=== PATIENT | male | born 1955 | race African-American/Black ===

== ENCOUNTER 2020-03-24 10:00 | Outpatient (RCR) | payer MEDICARE, MEDICAID, SELFPAY | END 2020-04-14 10:36 | disposition other institution (70) | LOC: HO.PT 10:00 | PROVIDERS: PCP Internal Medicine; Visit Provider Internal Medicine | DX: M51.36 Other intervertebral disc degeneration, lumbar region (principal) | CPT/HCPCS: 97110; 97112; 97150 ==

== ENCOUNTER 2021-02-07 10:36 | Outpatient (REF) | payer MEDICARE, MEDICAID, SELFPAY ==
--- NOTE | ~2021-02-07 | XR_ITS ---
EXAMINATION: XR CHEST CLINICAL INFORMATION: COPD. COMPARISON: 02/09/2016 chest radiograph. TECHNIQUE: 2 views of the chest were obtained. FINDINGS: The lungs show generalized hyperinflation, but otherwise are clear. The heart and mediastinal structures are unremarkable. XR/XR chest 2V IMPRESSION: Generalized pulmonary hyperinflation is nonspecific, but can be seen with COPD as per the patient's history. No acute cardiopulmonary process.
== END 2021-02-07 10:37 | disposition home or self-care (01) ==
LOC: HO.XRAY 10:36
PROVIDERS: PCP Internal Medicine; Visit Provider Internal Medicine
DX: J44.9 Chronic obstructive pulmonary disease, unspecified (principal); F17.210 Nicotine dependence, cigarettes, uncomplicated; Z79.899 Other long term (current) drug therapy
CPT/HCPCS: 71046; 99202

== ENCOUNTER 2021-03-02 10:24 | Outpatient (REF) | payer MEDICARE, MEDICAID, SELFPAY ==
--- NOTE | 2021-03-02 12:18 | PFT_ITS ---
FLOWS: FEV1 39% of predicted at 1.06 L. FVC 88% of predicted at 3.15 L. FEV1 to FVC ratio of 0.34. Positive bronchodilator response. LUNG VOLUMES: Total lung capacity 125% of predicted at 7.90 L. Residual volume 230% of predicted at 4.90 L. Slow vital capacity 60% of predicted at 3 L. Expiratory reserve volume 58% of predicted at 0.85 L. Diffusion capacity is moderately decreased. IMPRESSION: Severe obstructive ventilatory defect with positive bronchodilator response. Increased total lung capacity suggests hyperinflation. Increased residual volume suggests air trapping. Decreased diffusion capacity suggests emphysema. MD STARLA Bowers/MODL / [id number]
== END 2021-03-02 10:25 | disposition home or self-care (01) ==
LOC: HO.RESP 10:24
PROVIDERS: PCP Internal Medicine; Visit Provider Internal Medicine
DX: R06.00 Dyspnea, unspecified (principal); J44.9 Chronic obstructive pulmonary disease, unspecified; F17.210 Nicotine dependence, cigarettes, uncomplicated
CPT/HCPCS: 94060; 94727; 94729

== ENCOUNTER 2021-03-04 15:16 | Outpatient (REF) | payer MEDICARE, MEDICAID, SELFPAY ==
--- NOTE | ~2021-03-04 | CT_ITS ---
EXAMINATION: CT CHEST SCREENING CLINICAL INFORMATION: Smoker. One pack per day 51 years. COMPARISON: None. TECHNIQUE: Multidetector volumetric CT imaging of the chest is performed without contrast using low dose technique. Additional 2D coronal and sagittal reformatted images and axial 3D maximum intensity projection (MIP) images are generated on the CT workstation. This CT examination was performed using dose optimization techniques as appropriate, variously including the following: *Automated exposure control *Adjustment of mA and/or kV according to patient size (this includes techniques or standardized protocols for targeted exams where dose is matched to indication/reason for exam; i.e. extremities or head) *Use of iterative reconstruction technique DLP: 64 mGy-cm. FINDINGS: LUNGS: Lungs are hyperinflated with centrilobular emphysema but without acute pneumonic process. There are no pulmonary nodules, mass or consolidation. MEDIASTINUM: The thyroid lobes are symmetrical and normal. The central trachea and the bronchi widely patent. The heart size and the great vessels are normal caliber. No pericardial effusion seen. PLEURA: There is no pleural effusion. No pleural mass or thickening. AXILLA: No abnormal axillary lymph nodes seen. The chest wall is unremarkable. UPPER ABDOMEN: Unremarkable. OSSEOUS STRUCTURES: No lytic or sclerotic process seen. There is mild ventral spondylosis dorsal spine. CT/CT lung screening IMPRESSION: Unremarkable CT chest exam. No lung nodules, mass or abnormal mediastinal lymphadenopathy seen. ASSESSMENT: Lung-RADS category 1: Negative RECOMMENDATION: Low-dose annual CT chest exam.
== END 2021-03-04 15:17 | disposition home or self-care (01) ==
LOC: HO.CT 15:16
PROVIDERS: PCP Internal Medicine; Visit Provider Physician Assistant Medical
DX: Z12.2 Encounter for screening for malignant neoplasm of respiratory organs (principal); F17.210 Nicotine dependence, cigarettes, uncomplicated
CPT/HCPCS: 71271; G0296

== ENCOUNTER → 2021-03-15 11:09 | Outpatient (BNVA) | payer MEDICARE, MEDICAID, SELFPAY | PROVIDERS: PCP Internal Medicine; Visit Provider Internal Medicine | DX: J44.9 Chronic obstructive pulmonary disease, unspecified (principal); F17.210 Nicotine dependence, cigarettes, uncomplicated | CPT/HCPCS: Q3014 ==

== ENCOUNTER → 2021-05-18 11:02 | Outpatient (BNVA) | payer MEDICARE, MEDICAID, SELFPAY | PROVIDERS: PCP Internal Medicine; Visit Provider Internal Medicine | DX: J44.9 Chronic obstructive pulmonary disease, unspecified (principal); R06.00 Dyspnea, unspecified; F17.210 Nicotine dependence, cigarettes, uncomplicated; F51.02 Adjustment insomnia | CPT/HCPCS: 99212 ==

== ENCOUNTER → 2021-07-21 10:48 | Outpatient (BNVA) | payer MEDICARE, MEDICAID, SELFPAY | PROVIDERS: PCP Internal Medicine; Visit Provider Internal Medicine | DX: J44.9 Chronic obstructive pulmonary disease, unspecified (principal); F17.210 Nicotine dependence, cigarettes, uncomplicated; R06.00 Dyspnea, unspecified ==

== ENCOUNTER 2022-05-06 12:27 | Inpatient (IN) | payer MEDICARE, MEDICAID, SELFPAY ==
[2022-05-06] VITALS (10 sets, daily range): BP systolic 106–162; BP diastolic 69–95; PULSE 84–102; RESP 16–18; TEMP 36.7–37.2; O2SAT 91–99; BMI 26.4
--- NOTE | ~2022-05-06 | CT_ITS ---
EXAMINATION: CT HEAD WITHOUT CONTRAST CT CERVICAL SPINE WITHOUT CONTRAST CLINICAL INFORMATION: Head and neck pain, post syncopal episode. COMPARISON: None TECHNIQUE: Multiple axial images are obtained from the skull base to the vertex and multidetector volumetric CT imaging of the cervical spine are obtained, without intravenous contrast administration. Postprocessing is performed at a dedicated workstation. Multiplanar reformatted images are submitted. This CT scan was performed using dose optimization techniques as appropriate to a performed exam including the following: *Automated exposure control *Adjustment of mA and/or kV according to patient size (this includes techniques or standardized protocols for targeted exams were dose is matched to indication/reason for exam; i.e. extremities or head) *Use of iterative reconstruction technique DLP: 1346 mGy-cm FINDINGS: CT Head: There is no evidence of acute intracranial hemorrhage, midline shift, mass effect, acute territorial infarction or abnormal extra-axial fluid collection. [id number] matter differentiation is well preserved. No significant abnormal parenchymal attenuation is noted. Osseous calvarium is intact. Small subgaleal hematoma is noted over the right posterior parietal region. There is mild deformity of the medial wall of the right orbit, likely chronic. Opacification of a few of the right anterior ethmoid air cells and minimal mucosal thickening in the right frontal sinus. The remainder of the paranasal sinuses are well aerated. Mastoid air cells and middle ear cavities are well aerated. Incidental note is made of a partially visualized cavity in the left maxillary region in the region of a molar tooth, probably represents a dentigerous cyst (series 14 image 33, series 3 image 13). CT Cervical Spine: Fusion of the C5, C6 and C7 vertebral bodies is noted. Alignment is maintained. Atlantoaxial and atlantooccipital alignments are maintained. The posterior elements are intact and in normal alignment. There is no evidence of prevertebral soft tissue swelling. Changes of emphysema are noted in the lung apices. No focal thyroid nodule. There is no evidence of tight central canal stenosis. Varying degree of bilateral facet arthropathy is noted. [id number] bilateral neural foraminal stenosis is noted at C3-C4 and C5-C6. [id number] bilateral neural foraminal stenosis at C5-C6 with mild central canal stenosis. Airway is patent. CT/CT cervical spine wo IV con IMPRESSION: 1. No acute intracranial abnormality. 2. No evidence of acute fracture or subluxation in the cervical spine. Cervical spondylosis.
--- NOTE | ~2022-05-06 | XR_ITS ---
EXAMINATION: XR CHEST CLINICAL INFORMATION: Wheezing. Syncope. COMPARISON: 02/07/2021 TECHNIQUE: Frontal view of the chest was obtained. FINDINGS: New patchy right lower lobe lung markings. This may represent a focal pneumonia. Given the history of syncope, aspiration is a consideration. Stable heart and mediastinum. Nonobstructive gas pattern. Stable idiopathic scoliosis. XR/XR chest 1V IMPRESSION: Patchy opacity at the right base suspicious for aspiration or pneumonia.
--- NOTE | 2022-05-06 13:22 | ECG_ITS ---
Test Reason : syncope Blood Pressure : / mmHG Vent. Rate : 098 BPM Atrial Rate : 098 BPM P-R Int : 150 ms QRS Dur : 104 ms QT Int : 332 ms P-R-T Axes : 079 -37 094 degrees QTc Int : 423 ms Normal sinus rhythm Left anterior fascicular block Incomplete right bundle branch block Nonspecific T wave abnormality Abnormal ECG When compared with ECG of 09-FEB-2016 11:59, T wave amplitude has decreased in Lateral leads Heart rate has increased Referred By: Shania Ni Electronically Signed By:MARIAELENA CANALES MD
--- NOTE | 2022-05-06 13:24 | ED_ITS ---
HPI - Syncope General Chief Complaint: Syncope Stated Complaint: DIZZY W/FALL,+LOC,HIT HEAD,+COVID,+CCOLLAR PER EMS Time Seen by Provider: 05/06/22 13:12 Source: patient and EMS Mode of arrival: EMS History of Present Illness HPI narrative: 66-year-old male with past medical history of COPD, HTN, anxiety, depression, HLD, cigarette smoker, COVID-19 positive on home test yesterday presenting to the ED complaining of lightheadedness followed by syncope [employer] with + head injury. States was sitting in chair in front of fan, got up to start walking and syncopized. Reports associated upper abdominal pain, diaphoresis, and decreased p.o. intake times days. Reports chronic back pain and SOB unchanged. Denies headache, neck pain, CP/SOB, nausea, vomiting, diarrhea, pedal edema, room spinning dizziness. Denies using inhaler or recent steroids MD complaint: loss of consciousness and felt faint Onset (ago): hour(s) Related Data Previous Rx's Medication Instructions Recorded escitalopram oxalate 10 mg tablet 10 mg PO DAILY 90 days #90 tabs 07/28/21 trazodone 50 mg tablet 100 mg PO DAILY insomnia 90 days 07/28/21 #180 tabs ibuprofen 800 mg tablet 800 mg PO TID PRN for pain #90 tabs 11/21/21 lisinopril 40 mg tablet 40 mg PO DAILY 90 days #90 tabs 11/21/21 simvastatin 20 mg tablet 20 mg PO BEDTIME 90 days #90 tabs 11/21/21 amlodipine 5 mg tablet 5 mg PO DAILY 90 days #90 tabs 12/08/21 blood pressure test kit-large #1 ea 12/22/21 albuterol sulfate 90 mcg/actuation 2 puff inhalation Q6H PRN 03/30/22 aerosol inhaler (Ventolin HFA) shortness of breath or wheezing 30 days #6.7 grams fluticasone furoate 200 1 inh inhalation DAILY 30 days #60 03/30/22 mcg-vilanterol 25 mcg/dose ea inhalation powder (Breo Ellipta) umeclidinium 62.5 mcg/actuation 1 inh inhalation Q24H 30 days #30 03/30/22 blister powder for inhalation ea (Incruse Ellipta) Allergies Allergy/AdvReac Type Severity Reaction Status Date / Time No Known Allergies Allergy Verified 03/30/22 09:53 [No Known Allergies*] Review of Systems Review of Systems: Constitutional: No Fever, No Chills, No Fatigue, No Malaise ENT/Mouth: No Ear Pain, No Nasal Congestion, No sore throat, No Rhinorrhea, No Swallowing Difficulty Eyes: No Eye Pain, No Swelling, No Redness, No Vision Changes Cardiovascular: No Chest Pain, +chronic SOB, No Dyspnea on Exertion, No Orthopnea, No Edema, No Palpitations Respiratory: No Cough, No Sputum, No Wheezing, No Dyspnea Gastrointestinal: No Nausea, No Vomiting, No Diarrhea, No Constipation, + Abdominal pain Genitourinary: No Dysuria, No Urinary Frequency, No Hematuria, No Urinary Incontinence/retention, No Flank Pain Musculoskeletal: No joint pain, No Myalgias, No Joint Swelling Skin: No Skin Lesions, No rash Neuro: No Weakness, No Numbness, No Paresthesias, + Loss of Consciousness, + lightheadedness, No Headache Yes all other systems are reviewed and are negative Constitutional: Constitutional: Reports as per HPI Neurologic: Denies Abnormal speech present [facility] Past Medical History Attestation statement: The following information was validated with the patient. Medical History COPD (chronic obstructive pulmonary disease) Dyspnea on exertion Essential hypertension NEENA (generalized anxiety disorder) History of prostate cancer Insomnia due to psychological stress Lumbar spondylosis Mild depression Personal history of nicotine dependence Pure hypercholesterolemia Smoker Tubular adenoma of colon Surgical History History of colonoscopy (~2017) History of prostate biopsy (~2015) History of prostate surgery (~2016) History of removal of cyst (~1990) Family History Family History Father Diabetes Pancreatic cancer Mother CVD (cardiovascular disease) Acute CVA (cerebrovascular accident) Family/Other FH: mental illness Social History Social History Housing: Apartment Alcohol intake: current Alcohol intake frequency: holidays/special occasions only Alcohol type: beer Patient Tobacco Use Status: Current everyday Tobacco user Tobacco use type: Cigarette Cigarettes Per Day: 10 Years Smoked: 51 (onset 15, 1/2-1ppd, 40pyh) Smoked in Last 30 Days: Yes e-Cigarette/Vaping Use: Never Used Second Hand Smoke Exposure: No Use of substances other than those prescribed or required for medical reasons: Yes Substance Use Type: Marijuana Advance Directives: No Advance Directives Information Provided: No Advance Directives Date on File: 03/22/20 service: No Current occupational status: disabled Cognitive needs: Yes Hearing needs: No Vision needs: No Physical Exam Vital Signs: Vital Signs: Last Vital Signs Temp 98.9 F 05/06/22 15:22 Pulse 94 05/06/22 15:22 Resp 16 05/06/22 15:22 BP 126/78 05/06/22 15:22 Pulse Ox 92 05/06/22 15:22 O2 Del Method 05/06/22 15:22 BMI result Body Mass Index 26.4 Const: General: cooperative, healthy appearing, no acute distress, alert and awake Orientation/consciousness: patient oriented x3 Limitations: no limitations HEENT: Head: Yes normal to inspection and Yes atraumatic Ears: hearing grossly normal bilaterally General nose exam: Normal external nose present Face and sinus: Yes normal facial exam Throat: Yes posterior oropharynx normal and Yes tonsils normal Eyes: General: appearance normal, both eyes and all related structures Pupils: Equal, round and reactive pupils present EOM: EOMs intact bilaterally Neck: Other: C-collar in place. No appreciable midline spinous tenderness Neck: Yes normal visual inspection and Yes no meningeal signs Chest: Chest palpation & inspection: normal inspection of the chest and no crepitus Resp: Effort & Inspection: normal respiratory effort and no respiratory distress Auscultation: wheezes expiratory wheezes and throughout Cardio: Rate: regular rate Heart sounds: S1 normal heart sound present and S2 normal heart sound present GI: Inspection: Yes normal to inspection Palpation (GI): Soft to palpation, Tenderness to palpation present (GI) in the epigastrum; with no rebound tenderness, no guarding and not rigid : General: Yes no CVA tenderness Back/Spine/Pelvis: Other: No midline thoracic/lumbar spinous tenderness/step-off or deformity Back: no CVA tenderness Skin: Rashes: no rashes Wounds: no wounds Neuro: General: patient oriented x3, tone normal, moves all extremities, no meningeal signs, no focal motor deficits and CN's II-XI intact bilaterally Cranial nerves: Yes CN's II-XII intact bilaterally, Yes Equal, round and reactive pupils present and Yes Bilaterally intact EOM present Cognition (Neuro): normal cognition Speech: No Abnormal speech present Motor exam (neuro): 5/5 motor strength present throughout, Pronator motor function not present and no tremor noted Coordination: [id number] test normal Romberg Test: Negative Extrem: General: Yes normal to inspection and Yes no pedal edema Course Course Course Narrative: 1428--XR chest 1V IMPRESSION: Patchy opacity at the right base suspicious for aspiration or pneumonia. >> lactic/blood cultures and IV cefepime ordered -1600--no leukocytosis. Lactic acid 2.0. Initial troponin mildly elevated > will obtain 3 hour repeat -CPK 800 > total 2 L IVF ordered -COVID-[address] head/brain wo IV con/CT cervical spine wo IV con IMPRESSION: 1. No acute intracranial abnormality. 2. No evidence of acute fracture or subluxation in the cervical spine. Cervical spondylosis. -orthostatic vital signs negative > on re-evaluation patient is still feeling lightheaded. Plan to admit for observation/further management Medications Administered Generic Name Dose Route Start Last Admin Trade Name Freq PRN Reason Stop Dose Admin Sodium Chloride 1,000 mls @ 999 mls/hr 05/06/22 15:15 05/06/22 15:17 Ns IV 05/06/22 16:15 999 mls/hr .Q1H1M IVAN Administration Discontinued Medications Generic Name Dose Route Start Last Admin Trade Name Freq PRN Reason Stop Dose Admin Albuterol Sulfate 5 mg 05/06/22 13:24 05/06/22 13:47 Albuterol Sulfate 2.5 Mg/0.5 Ml Vial.Neb INHALE 05/06/22 13:25 5 mg ONCE ONE Administration Albuterol/Ipratropium 3 ml 05/06/22 13:24 05/06/22 13:47 Albuterol/Iprat 2.5/0.5mg 3 Ml Ampul.Neb INHALE 05/06/22 13:25 3 ml ONCE ONE Administration Famotidine 20 mg 05/06/22 13:21 05/06/22 14:23 Famotidine/Pf 20 Mg/2 Ml Vial IVPUSH 05/06/22 13:22 20 mg ONCE ONE Administration Sodium Chloride 1,000 mls @ 999 mls/hr 05/06/22 13:30 05/06/22 15:38 Ns IV 05/06/22 14:30 Infused .Q1H1M IVAN Infusion Cefepime HCl 2 gm/ Sodium 50 mls @ 100 mls/hr 05/06/22 14:27 05/06/22 15:47 Chloride IV 05/06/22 14:56 Infused ONCE ONE Infusion Methylprednisolone Sodium Succinate 125 mg 05/06/22 13:21 05/06/22 14:23 Methylprednisolone Sod Succ 125 Mg/2 Ml Vial IVPUSH 05/06/22 13:22 125 mg ONCE ONE Administration MDM - Syncope MDM Narrative Medical decision making narrative: 66-year-old male with past medical history of COPD, HTN, anxiety, depression, HLD, cigarette smoker, COVID-19 positive on home test yesterday presenting to the ED complaining of lightheadedness followed by syncope [employer] with + head injury. States was sitting in chair in front of fan, got up to start walking and syncopized. Reports associated upper abdominal pain, diaphoresis, and decreased p.o. intake x days. On exam vital signs stable, C-collar in place, NAD, no focal neuro deficits, diffuse expiratory wheeze noted, abdomen soft epigastric tenderness. Concern for vasovagal syncope vs dehydration and metabolic abnormalities vs ACS vs COPD exacerbation. Lower suspicion for PE, pancreatitis, DVT. Lower suspicion for SAH. Rule out ICH Plan: EKG, labs, UA, CXR, head/C-spine CT, IVF, orthostatics, re-evaluate Differential Diagnosis Differential diagnosis: Likely syncope due to orthostatic hypotension, vasovagal syncope and dehydration Medical Records Attestation: I reviewed the patient's medical records. Lab Data Attestation: I reviewed the patient's lab results. Result diagrams: 05/06/22 14:20 05/06/22 14:20 Labs: Lab Results 05/06/22 05/06/22 05/06/22 Range/Units 14:20 14:20 14:20 WBC 9.5 (4.8-10.8) X10*3/uL RBC 5.54 (4.60-5.80) X10*6/uL Hgb 14.9 (14.0-18.0) g/dl Hct 46.6 (42.0-52.0) % MCV 84.1 (80.0-98.0) fL MCH 26.9 L (27.0-33.0) pg MCHC 32.0 (31.0-36.0) g/dl RDW 14.6 (11.0-16.0) % Plt Count 105 L (160-400) X10*3/uL MPV 11.4 (9.4-12.4) fL Immature Gran % (Auto) 0.3 (0.0-0.4) % Neut % (Auto) 76.7 H (45-73) % Lymph % (Auto) 15.4 L (20-40) % [place] % (Auto) 7.5 (2-11) % Eos % (Auto) 0.0 (0-4) % Baso % (Auto) 0.1 (0-2) % Lymph # (Auto) 1.5 (1.2-4.9) X10*3/uL [place] # (Auto) 0.7 (0.1-1.2) X10*3/uL Eos # (Auto) 0.0 (0.0-0.4) X10*3/uL Baso # (Auto) 0.0 (0.0-0.2) X10*3/uL Abs Immat Gran (auto) 0.03 (0.00-0.03) X10*3/uL Absolute Neuts (auto) 7.3 (2.0-8.3) x10*3/uL Absolute Nucleated RBC 0.000 (0.0-0.012) X10*3/uL Nucleated RBC % (auto) 0.0 (0.0-0.2) /100WBC Smear Tech's Comments VERIFIED PT 13.4 H (10.0-13.1) SEC INR 1.2 H (0.9-1.1) Sodium 144 (135-145) mmol/L Potassium 3.4 (3.3-5.1) mmol/L Chloride 107 (96-108) mmol/L Carbon Dioxide 23 (22-29) mmol/L Anion Gap 17 (12-20) BUN 18 H (9-16) mg/dL Creatinine 1.03 (0.5-1.4) mg/dL Estim Creat Clear Calc 75.3 Estimated GFR > 60 Random Glucose 131 H (60-115) mg/dL Lactic Acid (0.5-2.0) mmol/L Calcium 8.8 (8.4-10.2) mg/dL Magnesium 2.3 (1.6-2.6) mg/dL Total Bilirubin 0.4 (0.0-1.0) mg/dL Direct Bilirubin 0.2 (0.0-0.5) mg/dL AST 34 (5-37) U/L ALT 27 (0-40) U/L Alkaline Phosphatase 85 (39-117) U/L Total Creatine Kinase 800 H (38-174) U/L Troponin I High Sens (<3.5-35.0) ng/L B-Natriuretic Peptide (<100) pg/mL Total Protein 7.3 (6.5-8.0) g/dL Albumin 4.2 (3.5-5.0) g/dL Lipase 7 L (8-78) U/L Influenza Type A (PCR) (Negative) Influenza Type B (PCR) (Negative) RSV RNA Qual (PCR) (Negative) SARS-CoV-2 RNA (RT-PCR) (Negative) 05/06/22 05/06/22 05/06/22 Range/Units 14:20 14:20 14:20 WBC (4.8-10.8) X10*3/uL RBC (4.60-5.80) X10*6/uL Hgb (14.0-18.0) g/dl Hct (42.0-52.0) % MCV (80.0-98.0) fL MCH (27.0-33.0) pg MCHC (31.0-36.0) g/dl RDW (11.0-16.0) % Plt Count (160-400) X10*3/uL MPV (9.4-12.4) fL Immature Gran % (Auto) (0.0-0.4) % Neut % (Auto) (45-73) % Lymph % (Auto) (20-40) % [place] % (Auto) (2-11) % Eos % (Auto) (0-4) % Baso % (Auto) (0-2) % Lymph # (Auto) (1.2-4.9) X10*3/uL [place] # (Auto) (0.1-1.2) X10*3/uL Eos # (Auto) (0.0-0.4) X10*3/uL Baso # (Auto) (0.0-0.2) X10*3/uL Abs Immat Gran (auto) (0.00-0.03) X10*3/uL Absolute Neuts (auto) (2.0-8.3) x10*3/uL Absolute Nucleated RBC (0.0-0.012) X10*3/uL Nucleated RBC % (auto) (0.0-0.2) /100WBC Smear Tech's Comments PT (10.0-13.1) SEC INR (0.9-1.1) Sodium (135-145) mmol/L Potassium (3.3-5.1) mmol/L Chloride (96-108) mmol/L Carbon Dioxide (22-29) mmol/L Anion Gap (12-20) BUN (9-16) mg/dL Creatinine (0.5-1.4) mg/dL Estim Creat Clear Calc Estimated GFR Random Glucose (60-115) mg/dL Lactic Acid (0.5-2.0) mmol/L Calcium (8.4-10.2) mg/dL Magnesium (1.6-2.6) mg/dL Total Bilirubin (0.0-1.0) mg/dL Direct Bilirubin (0.0-0.5) mg/dL AST (5-37) U/L ALT (0-40) U/L Alkaline Phosphatase (39-117) U/L Total Creatine Kinase (38-174) U/L Troponin I High Sens 15.4 (<3.5-35.0) ng/L B-Natriuretic Peptide 12 (<100) pg/mL Total Protein (6.5-8.0) g/dL Albumin (3.5-5.0) g/dL Lipase (8-78) U/L Influenza Type A (PCR) NEGATIVE (Negative) Influenza Type B (PCR) NEGATIVE (Negative) RSV RNA Qual (PCR) NEGATIVE (Negative) SARS-CoV-2 RNA (RT-PCR) POSITIVE A (Negative) 05/06/22 Range/Units 14:46 WBC (4.8-10.8) X10*3/uL RBC (4.60-5.80) X10*6/uL Hgb (14.0-18.0) g/dl Hct (42.0-52.0) % MCV (80.0-98.0) fL MCH (27.0-33.0) pg MCHC (31.0-36.0) g/dl RDW (11.0-16.0) % Plt Count (160-400) X10*3/uL MPV (9.4-12.4) fL Immature Gran % (Auto) (0.0-0.4) % Neut % (Auto) (45-73) % Lymph % (Auto) (20-40) % [place] % (Auto) (2-11) % Eos % (Auto) (0-4) % Baso % (Auto) (0-2) % Lymph # (Auto) (1.2-4.9) X10*3/uL [place] # (Auto) (0.1-1.2) X10*3/uL Eos # (Auto) (0.0-0.4) X10*3/uL Baso # (Auto) (0.0-0.2) X10*3/uL Abs Immat Gran (auto) (0.00-0.03) X10*3/uL Absolute Neuts (auto) (2.0-8.3) x10*3/uL Absolute Nucleated RBC (0.0-0.012) X10*3/uL Nucleated RBC % (auto) (0.0-0.2) /100WBC Smear Tech's Comments PT (10.0-13.1) SEC INR (0.9-1.1) Sodium (135-145) mmol/L Potassium (3.3-5.1) mmol/L Chloride (96-108) mmol/L Carbon Dioxide (22-29) mmol/L Anion Gap (12-20) BUN (9-16) mg/dL Creatinine (0.5-1.4) mg/dL Estim Creat Clear Calc Estimated GFR Random Glucose (60-115) mg/dL Lactic Acid 2.0 (0.5-2.0) mmol/L Calcium (8.4-10.2) mg/dL Magnesium (1.6-2.6) mg/dL Total Bilirubin (0.0-1.0) mg/dL Direct Bilirubin (0.0-0.5) mg/dL AST (5-37) U/L ALT (0-40) U/L Alkaline Phosphatase (39-117) U/L Total Creatine Kinase (38-174) U/L Troponin I High Sens (<3.5-35.0) ng/L B-Natriuretic Peptide (<100) pg/mL Total Protein (6.5-8.0) g/dL Albumin (3.5-5.0) g/dL Lipase (8-78) U/L Influenza Type A (PCR) (Negative) Influenza Type B (PCR) (Negative) RSV RNA Qual (PCR) (Negative) SARS-CoV-2 RNA (RT-PCR) (Negative) Critical Care Time Critical Care Time Critical Care Time: Yes Total Critical Care Time: 35 Attestation: I have personally provided critical care time exclusive of time spent on separately billable procedures. Time includes review of lab data, radiology results, discussion with consultants, and monitoring for potential decompensation. Intervention performed as documented. Discharge Plan Discharge Clinical Impression: Pneumonia, Syncope and collapse, COVID-19, COPD (chronic obstructive pulmonary disease) Patient Disposition: Admitted As Inpatient
[2022-05-06] MEDS: Albuterol Sulfate 2.5 MG/0.5 ML VIAL.NEB 5 MG INHALE (13:47)
[2022-05-06] MEDS: Albuterol/Iprat 2.5/0.5MG 3 ML AMPUL.NEB INHALE ×2 (13:47→16:40)
--- NOTE | 2022-05-06 13:51 | PC.NURSE ---
radiology at bedside
[2022-05-06] MEDS: 0.9 % Sodium Chloride 1,000 ML 999 ML IV ×2 (14:23→15:17)
[2022-05-06] MEDS: Famotidine/PF 20 MG/2 ML VIAL IVPUSH (14:23)
[2022-05-06] MEDS: methylPREDNISolone Sod Succ 125 MG/2 ML VIAL IVPUSH (14:23)
[2022-05-06 14:28] LABS: Basophils Percent Auto 0.1 % (0-2); Hematocrit 46.6 % (42.0-52.0); Hemoglobin 14.9 g/dl (14.0-18.0); Imm Gran Abs Auto 0.03 X10*3/uL (0.00-0.03); Imm Gran Pct Auto 0.3 % (0.0-0.4); Lymphocytes Absolute Auto 1.5 X10*3/uL (1.2-4.9); Lymphocytes Percent Auto 15.4 % (20-40); MANUAL DIFF FLAG SCAN; Mean Corpuscular Hemoglobin 26.9 pg (27.0-33.0); Mean Corpuscular Volume 84.1 fL (80.0-98.0); Mean Platelet Volume 11.4 fL (9.4-12.4); Monocytes Absolute Auto 0.7 X10*3/uL (0.1-1.2); Monocytes Percent Auto 7.5 % (2-11); Neutrophils Absolute Auto 7.3 x10*3/uL (2.0-8.3); Neutrophils Percent Auto 76.7 % (45-73); PLT CLUMP 1; Red Blood Count 5.54 X10*6/uL (4.60-5.80); Red Cell Distribution Width 14.6 % (11.0-16.0); SCAN SMEAR FLAG 1
--- NOTE | 2022-05-06 14:29 | PC.NURSE ---
patient a&ox3, monitor tech applied nsr 90s, vss, pt medicated per order, denies pain, pt states he feels a little anxious, vss, call yuen within reach, will continue to monitor
[2022-05-06 14:39] LABS: INTERNATIONAL NORM RATIO 1.2 (0.9-1.1); Prothrombin Time 13.4 SEC (10.0-13.1)
[2022-05-06 14:44] LABS: Alanine Aminotransferase 27 U/L (0-40); Albumin Level 4.2 g/dL (3.5-5.0); Alkaline Phosphatase 85 U/L (39-117); Anion Gap 17 (12-20); Aspartate Amino Transferase 34 U/L (5-37); Bilirubin Direct 0.2 mg/dL (0.0-0.5); Bilirubin Total 0.4 mg/dL (0.0-1.0); Blood Urea Nitrogen 18 mg/dL (9-16); Calcium 8.8 mg/dL (8.4-10.2); Carbon Dioxide 23 mmol/L (22-29); Chloride 107 mmol/L (96-108); Creatinine Clr Calc Pharmacy 75.3; Estimated Glomerular Filt Rate > 60; Glucose Random 131 mg/dL (60-115); Lipase 7 U/L (8-78); Magnesium 2.3 mg/dL (1.6-2.6); Potassium 3.4 mmol/L (3.3-5.1); Sodium 144 mmol/L (135-145); Total Protein 7.3 g/dL (6.5-8.0)
[2022-05-06 14:48] LABS: Troponin-I High Sensitivity 15.4 ng/L (<3.5-35.0)
[2022-05-06 14:50] LABS: B Type Natriuretic Peptide 12 pg/mL (<100)
[2022-05-06 14:52] LABS: White Blood Count 9.5 X10*3/uL (4.8-10.8)
[2022-05-06 14:54] LABS: Platelet Count 105 X10*3/uL (160-400); SLIDE REVIEW VERIFIED
[2022-05-06] MEDS: cefEPime HCl 2 GM in 0.9 % Sodium Chloride 50 ML IV (15:17)
--- NOTE | 2022-05-06 15:23 | PC.NURSE ---
patient a&ox3,teletypesetter monitor intact nsr 90s, vss, pt medicated per order, call yuen within reach, will continue to monitor
[2022-05-06 15:43] LABS: Influenza A PCR NEGATIVE (Negative); Influenza B PCR NEGATIVE (Negative); Resp Syncy Virus RNA Qual PCR NEGATIVE (Negative); SARS COV2 PCR INHOUSE POSITIVE (Negative)
[2022-05-06] MEDS: Azithromycin 500 MG in 0.9 % Sodium Chloride 250 ML 125 MG IV (18:33)
--- NOTE | 2022-05-06 18:35 | PM.IMHP ---
History of Present Illness Date of Service: 05/06/22 Attending physician on admission: Ho Verduzco Chief Complaint: syncope,covid ,pneumonia 66 y/o M PMHX of COPD, HTN, anxiety, depression, HLD, cigarette smoker, COVID-19 positive at home yesterday- Patient says that he was trying to quit smoking from last couple of days was not eating much as well as not hydrating well and subsequently was feeling dizzy afterwards then he was seen by his daughter and for dizziness reason was tested for COVID came out to be positive- afterwards he states was sitting in chair in front of fan, got up to start walking and syncopized for few seconds, he denies any chest pain or palpitations or shortness of breath at the event time.? Reports associated upper abdominal pain, diaphoresis, and decreased p.o. intake times days. Reports chronic back pain and SOB unchanged.? denies any sick contacts or any travel or any recent antibiotic use. Denies headache, neck pain, CP, nausea, vomiting, diarrhea, pedal edema, room spinning dizziness.? Lab imaging EKG reviewed: CBC and BMP seems fine, EKG NSR- no ST changes. Chest x-ray question? aspiration worsen pneumonia CT / neckhead seems negative Social history: Smoker active 1 pack a day from last 50 years, smokes marijuanamore 1 also in between almost every week. Drinks 1 beer every other day no recreational drugs Review of Systems Review of Systems: as above. Yes all other systems are reviewed and are negative [facility] Medical History COPD (chronic obstructive pulmonary disease) Dyspnea on exertion Essential hypertension NEENA (generalized anxiety disorder) History of prostate cancer Insomnia due to psychological stress Lumbar spondylosis Mild depression Personal history of nicotine dependence Pure hypercholesterolemia Smoker Tubular adenoma of colon Family History Father Diabetes Pancreatic cancer Mother CVD (cardiovascular disease) Acute CVA (cerebrovascular accident) Family/Other FH: mental illness Surgical History History of colonoscopy (~2017) History of prostate biopsy (~2015) History of prostate surgery (~2016) History of removal of cyst (~1990) Social History Housing: Apartment Alcohol intake: current Alcohol intake frequency: holidays/special occasions only Alcohol type: beer Patient Tobacco Use Status: Current everyday Tobacco user Tobacco use type: Cigarette Cigarettes Per Day: 10 Years Smoked: 51 (onset 15, 1/2-1ppd, 40pyh) Smoked in Last 30 Days: Yes e-Cigarette/Vaping Use: Never Used Second Hand Smoke Exposure: No Use of substances other than those prescribed or required for medical reasons: Yes Substance Use Type: Marijuana Advance Directives: No Advance Directives Information Provided: No Advance Directives Date on File: 03/22/20 service: No Current occupational status: disabled Cognitive needs: Yes Hearing needs: No Vision needs: No Meds Allergies Allergy/AdvReac Type Severity Reaction Status Date / Time No Known Allergies Allergy Verified 03/30/22 09:53 [No Known Allergies*] Active Medications: Current Medications Albuterol/Ipratropium (Albuterol/Iprat 2.5/0.5mg 3 Ml Ampul.Neb) 3 ml INHALE RQ4H WHILE AWAKE [facility] Enoxaparin Sodium (Enoxaparin Sodium 40 Mg/0.4 Ml Syringe) 40 mg SUBCUT Q24H [facility] Ceftriaxone Sodium 1 gm/ (Sodium Chloride) 50 mls @ 100 mls/hr IV Q24H [facility] Azithromycin 500 mg/ Sodium (Chloride) 250 mls @ 125 mls/hr IV Q24H [facility] Last Admin: 05/06/22 18:33 Dose: 125 mls/hr Methylprednisolone Sodium Succinate (Methylprednisolone Sod Succ 40 Mg/Ml Vial) 40 mg IVPUSH BID [facility] Pharmacy Consult (Consult Rx Perform Med Rec) 1 each MISCELLANE ONCE PRN PRN Reason: Consult order Sodium Chloride (0.9 % Sodium Chloride Flush 3 Ml Syringe) 3 ml IVFLUSH QSHIFT [facility] Home Medications Medication Instructions Recorded Confirmed Last Taken Type escitalopram oxalate 10 mg tablet 10 mg PO DAILY PRN Anxiety 05/06/22 05/06/22 Unknown History trazodone 50 mg tablet 100 mg PO DAILY PRN Insomnia 05/06/22 05/06/22 Unknown History Physical Exam Vital Signs and Narrative: Vital Signs: Last Vital Signs Temp 98.9 F 05/06/22 15:22 Pulse 84 05/06/22 16:40 Resp 18 05/06/22 16:40 BP 126/78 05/06/22 15:22 Pulse Ox 92 05/06/22 15:22 O2 Del Method 05/06/22 15:22 BMI result Body Mass Index 26.4 Appearance: Alert.? Oriented X3.?sob /talking in short sentences , sob with minimum excersion Eyes: Pupils equal, round and reactive to light.? Sclera nonicteric.? ENT: Pharynx normal.? Moist mucous membranes. cvs: rrr, [id number] , no murmur res: clear to auscultation ,no rhonchii or wheezing abd: no rebound or guarding ,some epigastric soarness , bs present. ext pulses present , no cyanosis. neuro: axo3 , nonfocal. Results Labs CBC and Chem 7: 05/06/22 14:20 05/06/22 14:20 Labs: Laboratory Results - last 24 hr 05/06/22 05/06/22 05/06/22 14:20 14:20 14:20 MCV 84.1 MCH 26.9 L MCHC 32.0 RDW 14.6 Plt Count 105 L MPV 11.4 Immature Gran % (Auto) 0.3 Neut % (Auto) 76.7 H Lymph % (Auto) 15.4 L Sharkey % (Auto) 7.5 Eos % (Auto) 0.0 Baso % (Auto) 0.1 Lymph # (Auto) 1.5 Sharkey # (Auto) 0.7 Eos # (Auto) 0.0 Baso # (Auto) 0.0 Abs Immat Gran (auto) 0.03 Absolute Neuts (auto) 7.3 Absolute Nucleated RBC 0.000 Nucleated RBC % (auto) 0.0 Smear Tech's Comments VERIFIED PT 13.4 H INR 1.2 H Anion Gap 17 Estim Creat Clear Calc 75.3 Estimated GFR > 60 Random Glucose 131 H Lactic Acid Calcium 8.8 Magnesium 2.3 Total Bilirubin 0.4 Direct Bilirubin 0.2 AST 34 ALT 27 Alkaline Phosphatase 85 Total Creatine Kinase 800 H Troponin I High Sens B-Natriuretic Peptide Total Protein 7.3 Albumin 4.2 Lipase 7 L Influenza Type A (PCR) Influenza Type B (PCR) RSV RNA Qual (PCR) SARS-CoV-2 RNA (RT-PCR) 05/06/22 05/06/22 05/06/22 14:20 14:20 14:20 MCV MCH MCHC RDW Plt Count MPV Immature Gran % (Auto) Neut % (Auto) Lymph % (Auto) Sharkey % (Auto) Eos % (Auto) Baso % (Auto) Lymph # (Auto) Sharkey # (Auto) Eos # (Auto) Baso # (Auto) Abs Immat Gran (auto) Absolute Neuts (auto) Absolute Nucleated RBC Nucleated RBC % (auto) Smear Tech's Comments PT INR Anion Gap Estim Creat Clear Calc Estimated GFR Random Glucose Lactic Acid Calcium Magnesium Total Bilirubin Direct Bilirubin AST ALT Alkaline Phosphatase Total Creatine Kinase Troponin I High Sens 15.4 B-Natriuretic Peptide 12 Total Protein Albumin Lipase Influenza Type A (PCR) NEGATIVE Influenza Type B (PCR) NEGATIVE RSV RNA Qual (PCR) NEGATIVE SARS-CoV-2 RNA (RT-PCR) POSITIVE A 05/06/22 14:46 MCV MCH MCHC RDW Plt Count MPV Immature Gran % (Auto) Neut % (Auto) Lymph % (Auto) Sharkey % (Auto) Eos % (Auto) Baso % (Auto) Lymph # (Auto) Sharkey # (Auto) Eos # (Auto) Baso # (Auto) Abs Immat Gran (auto) Absolute Neuts (auto) Absolute Nucleated RBC Nucleated RBC % (auto) Smear Tech's Comments PT INR Anion Gap Estim Creat Clear Calc Estimated GFR Random Glucose Lactic Acid 2.0 Calcium Magnesium Total Bilirubin Direct Bilirubin AST ALT Alkaline Phosphatase Total Creatine Kinase Troponin I High Sens B-Natriuretic Peptide Total Protein Albumin Lipase Influenza Type A (PCR) Influenza Type B (PCR) RSV RNA Qual (PCR) SARS-CoV-2 RNA (RT-PCR) Imaging Radiologist's Impressions: Impressions Chest X-Ray 05/06/22 13:57 IMPRESSION: Patchy opacity at the right base suspicious for aspiration or pneumonia. Cervical Spine CT 05/06/22 14:05 IMPRESSION: 1. No acute intracranial abnormality. 2. No evidence of acute fracture or subluxation in the cervical spine. Cervical spondylosis. Head CT 05/06/22 14:05 IMPRESSION: 1. No acute intracranial abnormality. 2. No evidence of acute fracture or subluxation in the cervical spine. Cervical spondylosis. Assessment and Plan (1) Syncope and collapse: Status: Acute (2) COVID-19: Status: Acute (3) Pneumonia: Status: Acute (4) COPD (chronic obstructive pulmonary disease): Status: Acute (5) COPD exacerbation: Status: Acute (6) Smoker: Status: Acute (7) Alcohol abuse: Status: Acute Plan 66 y/o M PMHX of COPD, HTN, anxiety, depression, HLD, cigarette smoker, COVID-19 positive - Try to quit smoking and lost appetite, was not eating well from last few days came with dizziness/ syncopal/COPD exacerbation. 1. COPD exacerbation in the setting of COVID positive/ possible pneumonia. continue nebs, steroids, antibiotics, blood culture pending. 2. Syncopal: Multifactorial- decreased p.o. intake , in addition nausea vomiting, viral sickness monitor tele, supportive care with just a gentle hydration troponin 1st set negative, 2nd set pending will add echo 3.htn: hold BP meds for now considering Syncopeand poor oral intake. 4.NEENA (generalized anxiety disorder): continue anxiety medication once medical reconciliation done, medical reconciliation still pending 5. active smoker: advice in detail to quit smoking, added nicotine patch, 6. alcohol user, marijuana user: his nausea vomiting and GI symptoms possibly related to viral sickness urine toxicology, CIWA scale 7. hyperlipidemia: hold statin for now, will start once p.o. intake improves. Above management discussed with the patient in detail length he understand and in agreement with above plan, time spent 70 minute. Considering COPD exacerbation in the setting of COVID- need steroid IV, nebs, also need antibiotics for pneumonia ,in addition need a syncope workup, patient will benefit from 2 midnight stays Quality Stroke Does the patient have a stroke diagnosis?: No VTE Prior VTE?: No VTE Risk Level:: Medical - moderate - high VTE Device Contraindication: N/A - Device Ordered VTE Drug Contraindication: N/A - Med Ordered
--- NOTE | 2022-05-06 18:43 | PC.NURSE ---
report given to imc rn
[2022-05-06 18:45] LABS: Troponin-I High Sensitivity 11.6 ng/L (<3.5-35.0)
--- NOTE | 2022-05-06 18:49 | PHA.MEDREC ---
Pharmacy Consult ? Medication Reconciliation Pharmacy has completed the medication reconciliation.
--- NOTE | 2022-05-06 18:58 | PHA.MEDREC ---
MED REC COMPLETE, PATIENT HAS NOT REGULARLY BEEN TAKING HIS LEXAPRO Pharmacy Consult ? Medication Reconciliation Pharmacy has completed the medication reconciliation.
[2022-05-06] MEDS: Thiamine HCL 100 MG TABLET PO (19:43)
[2022-05-06] MEDS: Omeprazole 20 MG CAPSULE.DR PO (19:43)
[2022-05-06] MEDS: Folic Acid 1 MG TABLET PO (19:43)
[2022-05-06] MEDS: Nicotine 21 MG PATCH.TD24 TRANSDERMA (19:43)
[2022-05-06] MEDS: 0.9 % Sodium Chloride Flush 3 ML SYRINGE IVFLUSH (19:44)
[2022-05-06] MEDS: methylPREDNISolone Sod Succ 40 MG/ML VIAL IVPUSH (19:44)
[2022-05-06] MEDS: cefTRIAXone sodium 1 GM in 0.9 % Sodium Chloride 50 ML IV (21:35)
[2022-05-06] MEDS: Lactated Ringers 1,000 ML 80 ML IVCONT (22:17)
[2022-05-07] VITALS (12 sets, daily range): BP systolic 138–165; BP diastolic 76–85; PULSE 75–91; RESP 18–20; TEMP 36.5–37.2; O2SAT 92–96
[2022-05-07] MEDS: Albuterol/Iprat 2.5/0.5MG 3 ML AMPUL.NEB INHALE ×3 (08:43→15:21)
[2022-05-07] MEDS: 0.9 % Sodium Chloride Flush 3 ML SYRINGE IVFLUSH ×2 (09:34→16:06)
[2022-05-07] MEDS: methylPREDNISolone Sod Succ 40 MG/ML VIAL IVPUSH ×2 (09:34→21:07)
[2022-05-07] MEDS: Thiamine HCL 100 MG TABLET PO (09:34)
[2022-05-07] MEDS: Folic Acid 1 MG TABLET PO (09:34)
[2022-05-07] MEDS: Nicotine 21 MG PATCH.TD24 TRANSDERMA (09:36)
--- NOTE | 2022-05-07 12:54 | P.PNIM_ITS ---
Subjective Subjective Date of Service: 05/07/22 Interval History: COPD exacerbation, COVID, pneumonia , syncope Review of Systems patient still feels short of breath somewhat better than yesterday, still talking in short sentences and has dry cough. Today denies any nausea or vomiting or abdominal pain. Physical Exam Vital Signs: Vital Signs: Last Vital Signs Temp 98.1 F 05/07/22 08:00 Pulse 91 05/07/22 10:15 Resp 18 05/07/22 08:47 BP 160/85 H 05/07/22 10:15 Pulse Ox 96 05/07/22 08:00 O2 Del Method 05/07/22 08:00 BMI result Body Mass Index 26.4 Appearance: Alert.? Oriented X3.?sob /talking in short sentences , sob with minimum excersion cvs: rrr, [id number] . res: air entry diminshed ,b/l wheezin abd: no rebound or guarding,nt, bs present. ext pulses present , no cyanosis. neuro: axo3 , nonfocal. Objective Data Active Medications Albuterol/Ipratropium (Albuterol/Iprat 2.5/0.5mg 3 Ml Ampul.Neb) 3 ml INHALE RQ4H WHILE AWAKE [facility] Last Admin: 05/07/22 12:12 Dose: 3 ml Documented By: SACHA Enoxaparin Sodium (Enoxaparin Sodium 40 Mg/0.4 Ml Syringe) 40 mg SUBCUT Q24H [facility] Last Admin: 05/06/22 19:36 Dose: Not Given Documented By: DARRELL Non-Admin Reason: Patient Refused Folic Acid (Folic Acid 1 Mg Tablet) 1 mg PO DAILY [facility] Last Admin: 05/07/22 09:34 Dose: 1 mg Documented By: CTORRZ Ceftriaxone Sodium 1 gm/ (Sodium Chloride) 50 mls @ 100 mls/hr IV Q24H [facility] Last Infusion: 05/06/22 22:17 Dose: 0 mls/hr Documented By: ANTOIC Azithromycin 500 mg/ Sodium (Chloride) 250 mls @ 125 mls/hr IV Q24H [facility] Last Infusion: 05/06/22 21:04 Dose: 0 mls/hr Documented By: ANTOIC Methylprednisolone Sodium Succinate (Methylprednisolone Sod Succ 40 Mg/Ml Vial) 40 mg IVPUSH BID [facility] Last Admin: 05/07/22 09:34 Dose: 40 mg Documented By: CLAUDIA Nicotine (Nicotine 21 Mg Patch.Td24) 21 mg TRANSDERMA DAILY [facility] Last Admin: 05/07/22 09:36 Dose: 21 mg Documented By: CLAUDIA Omeprazole (Omeprazole 20 Mg Capsule.Dr) 20 mg PO BID@0630,1630 [facility] Last Admin: 05/07/22 06:14 Dose: Not Given Documented By: ANTOIC Non-Admin Reason: Patient Asleep Pharmacy Consult (Consult Rx Perform Med Rec) 1 each MISCELLANE ONCE PRN PRN Reason: Consult order Sodium Chloride (0.9 % Sodium Chloride Flush 3 Ml Syringe) 3 ml IVFLUSH QSHIFT [facility] Last Admin: 05/07/22 09:34 Dose: 3 ml Documented By: CLAUDIA Thiamine HCl (Thiamine Hcl 100 Mg Tablet) 100 mg PO DAILY [facility] Last Admin: 05/07/22 09:34 Dose: 100 mg Documented By: CLAUDIA Labs CBC & Chem 7: 05/06/22 14:20 05/06/22 14:20 Labs: Laboratory Results - last 24 hr 05/06/22 05/06/22 05/06/22 14:20 14:20 14:20 MCV 84.1 MCH 26.9 L MCHC 32.0 RDW 14.6 Plt Count 105 L MPV 11.4 Immature Gran % (Auto) 0.3 Neut % (Auto) 76.7 H Lymph % (Auto) 15.4 L Armstrong % (Auto) 7.5 Eos % (Auto) 0.0 Baso % (Auto) 0.1 Lymph # (Auto) 1.5 Armstrong # (Auto) 0.7 Eos # (Auto) 0.0 Baso # (Auto) 0.0 Abs Immat Gran (auto) 0.03 Absolute Neuts (auto) 7.3 Absolute Nucleated RBC 0.000 Nucleated RBC % (auto) 0.0 Smear Tech's Comments VERIFIED PT 13.4 H INR 1.2 H Anion Gap 17 Estim Creat Clear Calc 75.3 Estimated GFR > 60 Random Glucose 131 H Lactic Acid Calcium 8.8 Magnesium 2.3 Total Bilirubin 0.4 Direct Bilirubin 0.2 AST 34 ALT 27 Alkaline Phosphatase 85 Total Creatine Kinase 800 H Troponin I High Sens B-Natriuretic Peptide Total Protein 7.3 Albumin 4.2 Lipase 7 L Influenza Type A (PCR) Influenza Type B (PCR) RSV RNA Qual (PCR) SARS-CoV-2 RNA (RT-PCR) 05/06/22 05/06/22 05/06/22 14:20 14:20 14:20 MCV MCH MCHC RDW Plt Count MPV Immature Gran % (Auto) Neut % (Auto) Lymph % (Auto) Armstrong % (Auto) Eos % (Auto) Baso % (Auto) Lymph # (Auto) Armstrong # (Auto) Eos # (Auto) Baso # (Auto) Abs Immat Gran (auto) Absolute Neuts (auto) Absolute Nucleated RBC Nucleated RBC % (auto) Smear Tech's Comments PT INR Anion Gap Estim Creat Clear Calc Estimated GFR Random Glucose Lactic Acid Calcium Magnesium Total Bilirubin Direct Bilirubin AST ALT Alkaline Phosphatase Total Creatine Kinase Troponin I High Sens 15.4 B-Natriuretic Peptide 12 Total Protein Albumin Lipase Influenza Type A (PCR) NEGATIVE Influenza Type B (PCR) NEGATIVE RSV RNA Qual (PCR) NEGATIVE SARS-CoV-2 RNA (RT-PCR) POSITIVE A 05/06/22 05/06/22 14:46 18:20 MCV MCH MCHC RDW Plt Count MPV Immature Gran % (Auto) Neut % (Auto) Lymph % (Auto) Armstrong % (Auto) Eos % (Auto) Baso % (Auto) Lymph # (Auto) Armstrong # (Auto) Eos # (Auto) Baso # (Auto) Abs Immat Gran (auto) Absolute Neuts (auto) Absolute Nucleated RBC Nucleated RBC % (auto) Smear Tech's Comments PT INR Anion Gap Estim Creat Clear Calc Estimated GFR Random Glucose Lactic Acid 2.0 Calcium Magnesium Total Bilirubin Direct Bilirubin AST ALT Alkaline Phosphatase Total Creatine Kinase Troponin I High Sens 11.6 B-Natriuretic Peptide Total Protein Albumin Lipase Influenza Type A (PCR) Influenza Type B (PCR) RSV RNA Qual (PCR) SARS-CoV-2 RNA (RT-PCR) Assessment and Plan (1) Alcohol abuse: Status: Acute (2) COPD exacerbation: Status: Acute (3) Pneumonia: Status: Acute (4) Syncope and collapse: Status: Acute (5) COVID-19: Status: Acute Plan 66 y/o M PMHX of COPD, HTN, anxiety, depression, HLD, cigarette smoker, COVID-19 positive -? Try to quit smoking and lost appetite, was not eating well from last few days came with dizziness/ syncopal/COPD exacerbation. 1.? ? COPD exacerbation in the setting of COVID positive/ possible pneumonia. ?continue nebs, steroids, antibiotics, blood culture pending. nausea vomiting improved 2.? Syncopal: Multifactorial- decreased p.o. intake , in addition nausea vomiting, viral sickness ?monitor tele, supportive care with just a gentle hydration ?troponin neg' tele seems fine added orthostais ?will add echo PT evaluation in morning 3.htn: added amlodpine ? 4.NEENA (generalized anxiety disorder): continue anxiety medication once medical reconciliation done, medical reconciliation still pending 5. active smoker: ?advice in detail to quit smoking, added nicotine patch, 6. alcohol user, marijuana user: ?his nausea vomiting and GI symptoms possibly related to viral sickness ?urine toxicology, CIWA scale 7. hyperlipidemia: ?hold statin for now, will start? once p.o. intake improves. on going inpatient need- COPD/pneumonia/ COVID: Need IV antibiotics, steroids and nebs, pending syncopal workup, PT evaluation in a.m.. Quality Stroke Does the patient have a stroke diagnosis?: No VTE Prior VTE?: No VTE Risk Level:: Medical - moderate - high VTE Device Contraindication: N/A - Device Ordered VTE Drug Contraindication: N/A - Med Ordered
[2022-05-07] MEDS: amLODIPine Besylate 2.5 MG TABLET PO (13:52)
--- NOTE | 2022-05-07 15:58 | MHC.CM.PN ---
IMM 05/07/22 MALE 66 DX COVID PNA LIVES W FRIEND. INDEPENDENT ALL FUNCTIONAL MOBILITY. PATIENT DECLINED TO DOCUMENT A HCP. HE HAS NOT BEEN VACCINATED. [facility] WILL PROVIDE TRANSPORTATION.
[2022-05-07] MEDS: Ibuprofen 600 MG TABLET PO (16:05)
[2022-05-07] MEDS: Omeprazole 20 MG CAPSULE.DR PO (16:06)
[2022-05-07] MEDS: Azithromycin 500 MG in 0.9 % Sodium Chloride 250 ML 125 MG IV (17:47)
[2022-05-07] MEDS: Enoxaparin Sodium 40 MG/0.4 ML SYRINGE SUBCUT (20:55)
[2022-05-07] MEDS: cefTRIAXone sodium 1 GM in 0.9 % Sodium Chloride 50 ML IV (22:06)
[2022-05-08] VITALS (9 sets, daily range): BP systolic 138–165; BP diastolic 60–92; PULSE 56–98; RESP 16–20; TEMP 36.4–37.1; O2SAT 93–98
[2022-05-08] MEDS: Omeprazole 20 MG CAPSULE.DR PO ×2 (05:42→16:11)
--- NOTE | 2022-05-08 07:00 | CA_ITS ---
Transthoracic Echocardiogram Patient (Last, First, Middle): Jonel Mendes E Gender: Male Date of : 1955 Age: 66 Procedure Date: 05/08/2022 Procedure Type: Transthoracic E[place] [facility] [place]: 182.88 cm Weight: 88.45 kg BSA: 2.11 m2 Heart Rate: bpm BP: 146 / 84 mmHg Career Services Representative: Referring MD: Ho Verduzco MD Symptoms: syncope Study Quality: Fair ECG Rhythm: Sinus Tachy Conclusions: - The left ventricular systolic function is normal. The visually estimated ejection fraction is between 65-70%. - There is mild aortic valve regurgitation. - There is mild tricuspid valve regurgitation. - (being re-signed due to technical issues) Findings Left Ventricle Normal left ventricular cavity size. There is mildly increased left ventricular wall thickness. The left ventricular systolic function is normal. The visually estimated ejection fraction is between 65-70%. There is no evidence of regional wall motion abnormalities. Diastolic function is normal for age. Right Ventricle Normal right ventricular cavity size and systolic function. Atria Both atria are normal in size. Aortic Valve The aortic valve was not well visualized. There is no aortic valve stenosis. There is mild aortic valve regurgitation. Mitral Valve The mitral valve appears normal. There is trace mitral valve regurgitation. There is no mitral valve stenosis. Pulmonic Valve The pulmonic valve is likely normal. Tricuspid Valve Normal tricuspid valve structure. There is mild tricuspid valve regurgitation. There is no evidence of pulmonary hypertension. Great Vessels The aorta was not well visualized. Venous The inferior vena cava is normal in size and collapses greater than 50% with inspiration. Pericardium/Pleural There is no evidence of pericardial effusion. Prior Study Comparison No prior study available for comparison. Measurements 2D Linear Measurements IVSd: 1.14 0.6-0.9/0.6-1.0 cm LVIDd: 4.00 3.9-5.3/4.2-5.9 cm LVIDd Index: 1.90 2.4-3.2/2.2-3.1 cm/m2 LVIDs: 2.37 2.0-3.6 cm LVPWd: 1.06 0.7-1.1 cm Ao Root: 1.80 2.1-3.5 cm LA Diam: 3.20 2.7-3.8/3.0-4.0 cm LAIDs Index: 1.52 1.5-2.3 cm/m2 LV Mass: 181.30 67-162/88-224 g LV Mass Index: 85.92 43-95/49-115 g/m2 LVOT Diam: 1.90 3.0+(-)1.3 cm Mitral Valve MV Pk E: 1.01 MV PK A: 0.83 MV Decel Time: 152.00 E/A: 1.20 E'Lateral: 7.29 E'Medial: 7.51 E/E' Med: 13.40 E/E' Lat: 13.90 PHT: 44.00 MVA PHT: 5.00 Decel Clinch: 6.66 Aortic Valve AoV Pk Toi: 1.53 AoV Mn Toi: 0.90 AoV VTI: 0.28 AoV Pk Grad: 9.00 Aov Mn Grad: 4.00 NATE Cont.VTI: 2.00 LVOT LVOT Pk Toi: 1.03 LVOT Mn Toi: 0.68 LVOT VTI: 0.20 LVOT Pk Grad: 4.00 LVOT Mn Grad: 2.00 LVOT Diam: 1.90 LVOT Area: 2.84 Diastolic Function MV Pk E: 1.01 MV Pk A: 0.83 E/A: 1.20 E'Medial: 7.51 E/E' Med: 13.40 E' Laterial: 7.29 E/E' Lat: 13.90 Right Ventricle TAPSE (mm): 32.00 TVS' Toi: 14.00 Tricuspid Valve TR Pk Toi: 2.80 TR Pk Grad: 31.00 RA Press: 3.00 RVSP: 34.00 Great Vessels Aorta Ao Root-2D: 1.80 2.0-3.7 cm Pulmonary Valve PV Pk Toi: 1.36 Peak PV Grad: 7.00 Updated in Other Vendor System with Status of Final Luis Bower MD electronically signed on 05/29/2022 11:27:07 AM with status of Final
[2022-05-08] MEDS: Albuterol/Iprat 2.5/0.5MG 3 ML AMPUL.NEB INHALE ×3 (07:37→15:27)
[2022-05-08] MEDS: methylPREDNISolone Sod Succ 40 MG/ML VIAL IVPUSH (08:24)
[2022-05-08] MEDS: Thiamine HCL 100 MG TABLET PO (08:24)
[2022-05-08] MEDS: Folic Acid 1 MG TABLET PO (08:24)
[2022-05-08] MEDS: 0.9 % Sodium Chloride Flush 3 ML SYRINGE IVFLUSH ×3 (08:25→16:13)
--- NOTE | 2022-05-08 14:28 | HO.PM.IMPN ---
Subjective Subjective Date of Service: 05/08/22 Interval History: ?COPD exacerbation, COVID, pneumonia , syncope Review of Systems patient still feels short of breath somewhat better than yesterday, still talking in short sentences and has dry cough. ? Today denies any nausea or vomiting or abdominal pain. Physical Exam Vital Signs: Vital Signs: Last Vital Signs Temp 98.8 F 05/08/22 12:00 Pulse 88 05/08/22 12:37 Resp 18 05/08/22 12:37 BP 152/86 H 05/08/22 12:00 Pulse Ox 94 05/08/22 12:00 O2 Del Method 05/08/22 12:00 BMI result Body Mass Index 26.4 ?Appearance: Alert.? Oriented X3.?sob /talking in short sentences , sob with minimum excersion cvs: rrr, [id number] . res: air entry diminshed ,b/l wheezin abd: no rebound or guarding,nt, bs present. ext pulses present , no cyanosis. neuro: axo3 , nonfocal. Objective Data Active Medications Acetaminophen (Acetaminophen 325 Mg Tablet) 650 mg PO Q6H PRN PRN Reason: Pain, Mild (Pain Scale 1-3) Albuterol/Ipratropium (Albuterol/Iprat 2.5/0.5mg 3 Ml Ampul.Neb) 3 ml INHALE RQ4H WHILE AWAKE [facility] Last Admin: 05/08/22 12:36 Dose: 3 ml Documented By: SACHA Enoxaparin Sodium (Enoxaparin Sodium 40 Mg/0.4 Ml Syringe) 40 mg SUBCUT Q24H [facility] Last Admin: 05/07/22 20:55 Dose: 40 mg Documented By: PASQUALE Folic Acid (Folic Acid 1 Mg Tablet) 1 mg PO DAILY [facility] Last Admin: 05/08/22 08:24 Dose: 1 mg Documented By: MIKE Ceftriaxone Sodium 1 gm/ (Sodium Chloride) 50 mls @ 100 mls/hr IV Q24H [facility] Last Infusion: 05/07/22 23:06 Dose: 0 mls/hr Documented By: PASQUALE Azithromycin 500 mg/ Sodium (Chloride) 250 mls @ 125 mls/hr IV Q24H [facility] Last Infusion: 05/07/22 22:08 Dose: 0 mls/hr Documented By: PASQUALE Methylprednisolone Sodium Succinate (Methylprednisolone Sod Succ 40 Mg/Ml Vial) 40 mg IVPUSH BID [facility] Last Admin: 05/08/22 08:24 Dose: 40 mg Documented By: MIKE Nicotine (Nicotine 21 Mg Patch.Td24) 21 mg TRANSDERMA DAILY [facility] Last Admin: 05/08/22 10:01 Dose: Not Given Documented By: MIKE Non-Admin Reason: Patient Refused Omeprazole (Omeprazole 20 Mg Capsule.) 20 mg PO BID@0630,9430 [facility] Last Admin: 05/08/22 05:42 Dose: 20 mg Documented By: PASQUALE Pharmacy Consult (Consult Rx Perform Med Rec) 1 each MISCELLANE ONCE PRN PRN Reason: Consult order Sodium Chloride (0.9 % Sodium Chloride Flush 3 Ml Syringe) 3 ml IVFLUSH QSHIFT [facility] Last Admin: 05/08/22 08:25 Dose: 3 ml Documented By: MIKE Thiamine HCl (Thiamine Hcl 100 Mg Tablet) 100 mg PO DAILY [facility] Last Admin: 05/08/22 08:24 Dose: 100 mg Documented By: MIKE Labs CBC & Chem 7: 05/06/22 14:20 05/06/22 14:20 Microbiology Microbiology Results: Microbiology 05/06/22 14:46 Blood Culture - Preliminary Blood - Venous No growth after 24 hours. 05/06/22 14:45 Blood Culture - Preliminary Blood - Venous No growth after 24 hours. Assessment and Plan (1) Alcohol abuse: Status: Acute (2) COPD exacerbation: Status: Acute (3) Pneumonia: Status: Acute (4) Syncope and collapse: Status: Acute (5) COVID-19: Status: Acute Plan 66 y/o M PMHX of COPD, HTN, anxiety, depression, HLD, cigarette smoker, COVID-19 positive -? Try to quit smoking and lost appetite, was not eating well from last few days came with dizziness/ syncopal/COPD exacerbation. 1.? ? COPD exacerbation in the setting of COVID positive/ possible pneumonia. ?continue nebs, steroids, antibiotics, blood culture pending. nausea vomiting improved 2.? Syncopal: Multifactorial- decreased p.o. intake , in addition nausea vomiting, viral sickness ?monitor tele, supportive care with just a gentle hydration ?troponin neg' tele seems fine added orthostais ?will add echo PT evaluation in morning 3.htn: added amlodpine ? 4.NEENA (generalized anxiety disorder): continue anxiety medication once medical reconciliation done, medical reconciliation still pending 5. active smoker: ?advice in detail to quit smoking, added nicotine patch, 6. alcohol user, marijuana user: ?his nausea vomiting and GI symptoms possibly related to viral sickness ?urine toxicology, CIWA scale 7. hyperlipidemia: ?hold statin for now, will start? once p.o. intake improves. on going inpatient need- COPD/pneumonia/ COVID: Need IV antibiotics, steroids and nebs, pending syncopal workup, PT evaluation in a.m.. Quality Stroke Does the patient have a stroke diagnosis?: No VTE Prior VTE?: No VTE Risk Level:: Medical - moderate - high VTE Device Contraindication: N/A - Device Ordered VTE Drug Contraindication: N/A - Med Ordered
--- NOTE | 2022-05-08 16:10 | MHC.CM.PN ---
Addendum entered by Vicky Loyd 05/08/22 16:16: PT EVAL PT THIS AM, REC. OUTPATIENT REHAB. Original Note: EMR REVIEWED PT NOT MEDICALLY CLEARED FOR DC ( IV antibiotics, steroids and nebs, pending syncopal workup, PT evaluation in a.m), CM WILL CONTINUE TO FOLLOW FOR DC NEEDS
--- NOTE | 2022-05-08 16:23 | P.DS_ITS ---
DS: Providers Provider Date of Service: 05/08/22 Date of admission: 05/06/22 17:20 Primary care physician: Unknown Physician DS: Diagnosis Discharge Diagnosis (1) Alcohol abuse: Status: Acute (2) COPD exacerbation: Status: Acute (3) Pneumonia: Status: Acute (4) Syncope and collapse: Status: Acute (5) COVID-19: Status: Acute DS: Summary Hospital Course Hospital Course: 66 y/o M PMHX of COPD, HTN, anxiety, depression, HLD, cigarette smoker, COVID-19 positive at home yesterday-? Patient says that he was trying to quit smoking from last couple of days was not eating much as well as not hydrating well and subsequently was feeling dizzy afterwards then he was seen by? his daughter and for? dizziness reason was tested for COVID came out to be positive- afterwards? he states was sitting in chair in front of fan, got up to start walking and syncopized? for few seconds, he denies any chest pain or palpitations or shortness of breath? at the event time.? Reports associated upper abdominal pain, diaphoresis, and decreased p.o. intake times days. Reports chronic back pain and SOB unchanged.? ?denies any sick contacts or any travel or any recent antibiotic use. ?Denies headache, neck pain, CP, nausea, vomiting, diarrhea, pedal edema, room spinning dizziness.? ? Lab imaging EKG reviewed: ? CBC and BMP seems fine, EKG? NSR- no ST changes. ? Chest x-ray question? aspiration worsen pneumonia ?CT / neckhead seems negative ? Social history:? Smoker active 1 pack a day from last 50 years, smokes? marijuanamore 1 also in between almost every week. ? Drinks 1 beer every other day ?no recreational drugs. Hospital course: patient admitted for COPD exacerbation in the setting of COVID. Also had nausea vomiting and a right-sided infiltrate suspicious for possible aspiration pneumonia- Started on IV antibiotics, antiemetics and nebs and steroids patient seems to be improved significantly going home with p.o. steroids as well as antibiotics. Advised for self isolation for 1 week for covid if possible . Please repeat chest imaging in 3-4 weeks to see resolution of pneumonia outpa tient. In addition patient initially had syncope in the setting of dehydration COVID infection: orthostasis negative, telemetry seems fine, echo seems also fine(preliminary), no orthostasis. seems like his syncopal episode related to above. Further workup will defer to outpatient with PCP. above management discussed with the patient he understand and agreement with the above plan. Time spent discussing smoking cessation with patient: more than 10 minutes Time Spent with Patient Time attestation: Total time spent providing and/or coordinating discharge services: Discharge coordination time: Greater than 30 minutes Quality: Safe Use of Opioids Does Pt have an Active Cancer Diagnosis on the Problem List?: No Quality: Stroke Does the patient have a stroke diagnosis?: No Physical Exam Vital Signs: Vital Signs: Last Vital Signs Temp 98.8 F 05/08/22 12:00 Pulse 68 05/08/22 15:27 Resp 16 05/08/22 15:27 BP 152/86 H 05/08/22 12:00 Pulse Ox 94 05/08/22 12:00 O2 Del Method 05/08/22 12:00 BMI result Body Mass Index 26.4 Appearance: Alert.? Oriented X3.? not in distress.? Eyes: Pupils equal, round and reactive to light.? Sclera nonicteric.? ENT: Pharynx normal.? Moist mucous membranes. cvs: rrr, [id number] . res: clear to auscultation ,no rhonchii or wheezing abd: no rebound or guarding ,nt, bs present. ext pulses present , no cyanosis. neuro: axo3 , nonfocal. DS: Data Data Completed and Pending Labs on day of discharge: Preliminary micro results at discharge 05/06/22 14:46 Blood Culture - Preliminary Blood - Venous No growth after 24 hours. 05/06/22 14:45 Blood Culture - Preliminary Blood - Venous No growth after 24 hours. Laboratory Results - last 24 hr ?B 05/06/22 05/06/22 05/06/22 ? 14:20 14:20 14:20 MCV ?84.1 ? ? MCH ?26.9 L ? ? MCHC ?32.0 ?B ? RDW ?14.6 ? ? Plt Count ?105 L ? ? MPV ?11.4 ? ? Immature Gran % (Auto) ?0.3 ? ? Neut % (Auto) ?76.7 H ? ? Lymph % (Auto) ?15.4 L ? ? Eagle % (Auto) ?7.5 ? ? Eos % (Auto) ?0.0 ? ? Baso % (Auto) ?0.1 ? ? Lymph # (Auto) ?1.5 ? ? Eagle # (Auto)B ?0.7 ? ? Eos # (Auto) ?0.0 ? ? Baso # (Auto) ?0.0 ? ? Abs Immat Gran (auto) ?0.03 ? ? Absolute Neuts (auto) ?7.3 ? ? Absolute Nucleated RBC ?0.000 ? ? Nucleated RBC % (auto) ?0.0 ? ? Smear Tech's Comments ?VERIFIED ? ? PT ? ? ?13.4 H INR ? ? ?1.2 H Anion Gap ? ?17 ? Estim Creat Clear Calc ? ?75.3 ? Estimated GFR ? ?> 60 ? Random Glucose ? ?131 H ? Lactic Acid ? ? ? Calcium ? ?8.8 ? Magnesium ? ?2.3 ? Total Bilirubin ? ?0.4 ? Direct Bilirubin ? ?0.2 ? AST ? ?34 ? ALT ? ?27 ? Alkaline Phosphatase ? ?85 ? Total Creatine Kinase ? ?800 H ? Troponin I High Sens ? ? ? B-Natriuretic Peptide ? ? ? Total Protein ? ?7.3 ? Albumin ? ?4.2 ? Lipase ? ?7 L ? Influenza Type A (PCR) ? ? ? Influenza Type B (PCR) ? ? ? RSV RNA Qual (PCR) ? ? ? SARS-CoV-2 RNA (RT-PCR) ? 05/06/22 05/06/22 05/06/22 ? 14:20 14:20 14:20 MCV ? ? ? MCH ? ? ? MCHC ? ? ? RDW ? ? ? Plt Count ? ? ? MPV ? ? ? Immature Gran % (Auto) ? ? ? Neut % (Auto) ? ? ? Lymph % (Auto) ? ? ? Eagle % (Auto) ? ? ? Eos % (Auto) ? ? ? Baso % (Auto) ? ? ? Lymph # (Auto) ? ? ? Eagle # (Auto) ? ? ? Eos # (Auto) ? ? ? Baso # (Auto) ? ? ? Abs Immat Gran (auto) ? ? ? Absolute Neuts (auto) ? ? ? Absolute Nucleated RBC ? ? ? Nucleated RBC % (auto) ? ? ? Smear Tech's Comments ? ? ? PT ? ? ? INR ? ? ? Anion Gap ? ? ? Estim Creat Clear Calc ? ? ? Estimated GFR ? ? ? Random Glucose ? ? ? Lactic Acid ? ? ? Calcium ? ? ? Magnesium ? ? ? Total Bilirubin ? ? ? Direct Bilirubin ? ? ? AST ? ? ? ALT ? ? ? Alkaline Phosphatase ? ? ? Total Creatine Kinase ? ? ? Troponin I High Sens ?15.4 ? ? B-Natriuretic Peptide ? ?12 ? Total Protein ? ? ? Albumin ? ? ? Lipase ? ? ? Influenza Type A (PCR) ? ? ?NEGATIVE D Influenza Type B (PCR) ? ? ?NEGATIVE RSV RNA Qual (PCR) ? ? ?NEGATIVE SARS-CoV-2 RNA (RT-PCR) ? ? ?POSITIVE A ? 05/06/22 05/06/22 ? 14:46 18:20 MCV ? ? MCH ? ? MCHC ? ? RDW ? ? Plt Count ? ? MPV ? ? Immature Gran % (Auto) ? ? Neut % (Auto) ? ? Lymph % (Auto) ? ? Eagle % (Auto) ? ? Eos % (Auto) ? ? Baso % (Auto) ? ? Lymph # (Auto) ? ? Eagle # (Auto) ? ? Eos # (Auto) ? ? Baso # (Auto) ? ? Abs Immat Gran (auto) ? ? Absolute Neuts (auto) ? ? Absolute Nucleated RBC ? ? Nucleated RBC % (auto) ? ? Smear Tech's Comments ? ? PT ? ? INR ? ? Anion Gap ? ? Estim Creat Clear Calc ? ? Estimated GFR ? ? Random Glucose ? ? Lactic Acid ?2.0 ? Calcium ? ? Magnesium ? ? Total Bilirubin ?B ? Direct Bilirubin ? ? AST ? ? ALT ? ? Alkaline Phosphatase ? ? Total Creatine Kinase ? ? Troponin I High Sens ? ?11.6 Imaging Chest x-ray: Radiologist's impression: ITS Impressions Chest X-Ray 05/06/22 13:57 IMPRESSION: Patchy opacity at the right base suspicious for aspiration or pneumonia. Cervical Spine CT 05/06/22 14:05 IMPRESSION: 1. No acute intracranial abnormality. 2. No evidence of acute fracture or subluxation in the cervical spine. Cervical spondylosis. Head CT 05/06/22 14:05 IMPRESSION: 1. No acute intracranial abnormality. 2. No evidence of acute fracture or subluxation in the cervical spine. Cervical spondylosis. Discharge Plan Discharge Anticipated Discharge Date/Time: 05/08/22 16:18 Patient Disposition: Home, Self-Care Discharge Diagnosis: covid,pneumonia ,copd execerebation Referrals: Physician,Unknown J [Primary Care Provider] - 1 Week Discharge Medications: New amoxicillin-pot clavulanate 875-125 mg tablet 1 tab PO BID Qty: 14 0RF Continued ibuprofen 800 mg tablet 800 mg PO TID PRN (Reason: for pain) Qty: 90 3RF amlodipine 5 mg tablet 5 mg PO DAILY 90 Days Qty: 90 1RF albuterol sulfate [Ventolin HFA] 90 mcg/actuation HFA aerosol inhaler 2 puff inhalation Q6H PRN (Reason: shortness of breath or wheezing) 30 Days Qty: 6.7 2RF trazodone 50 mg tablet 100 mg PO DAILY PRN (Reason: Insomnia) escitalopram oxalate 10 mg tablet 10 mg PO DAILY Breo Ellipta 200-25 mcg/dose blister with device 1 inh inhalation DAILY 30 Days Qty: 60 6RF simvastatin 20 mg tablet 20 mg PO BEDTIME 90 Days Qty: 90 1RF lisinopril 40 mg tablet 40 mg PO DAILY 90 Days Qty: 90 1RF (DME) blood pressure test kit-large Kit See Rx Instructions .Route Qty: 1 0RF Rx Instructions: As directed Discharge Orders: Discharge Order (Routine); Ordered 05/08/22 Ordered By: Ho Verduzco Diet: Advance to usual diet Activity on Discharge: As tolerated Stand Alone Forms: Patient Portal Discharge page Care Plan Goals: patient admitted for COPD exacerbation in the setting of COVID. Also had nausea vomiting and a right-sided infiltrate suspicious for possible aspiration pneumonia- Started on IV antibiotics, antiemetics and nebs and steroids patient seems to be improved significantly going home with p.o. steroids as well as antibiotics. Advised for self isolation for 1 week for covid if possible . Please repeat chest imaging in 3-4 weeks to see resolution of pneumonia outpatient. In addition patient initially had syncope in the setting of dehydration COVID infection: orthostasis negative, telemetry seems fine, echo seems also fine(preliminary), no orthostasis. seems like his syncopal episode related to above. Further workup will defer to outpatient with PCP. above management discussed with the patient he understand and agreement with the above plan Health Concerns: as above. Plan of Treatment: As above. Assessment: As above. Discharge Date/Time: 05/08/22 17:45
== END 2022-05-08 17:45 | disposition home or self-care (01) | DRG 177 ==
LOC: HO.ED 16:48 → HO.EDOVER 17:26 → HO.IMC 18:21
PROVIDERS: Physician Assistant; Admitting Provider Internal Medicine; Emergency Provider Emergency Medicine Emergency Medical Services; Visit Provider Internal Medicine
DX: U07.1 COVID-19 (principal); J12.82 Pneumonia due to coronavirus disease 2019; J44.0 Chronic obstructive pulmonary disease with (acute) lower respiratory infection; J44.1 Chronic obstructive pulmonary disease with (acute) exacerbation; F41.1 Generalized anxiety disorder; E78.00 Pure hypercholesterolemia, unspecified; F17.210 Nicotine dependence, cigarettes, uncomplicated; Z71.6 Tobacco abuse counseling; Z79.51 Long term (current) use of inhaled steroids; Z79.899 Other long term (current) drug therapy
CPT/HCPCS: 0241U; 36415; 70450; 71045; 72125; 80048; 80076; 82550; 83605; 83690; 83735; 83880; 84484; 85025; 85610; 87040; 93005; 93306; 94640; 97161; 99285; J0456; J0692; J0696; J1650; J2920; J2930

== ENCOUNTER → 2022-06-01 13:19 | Outpatient (BNVA) | payer MEDICARE, MEDICAID, SELFPAY | PROVIDERS: PCP Internal Medicine; Visit Provider Surgery Vascular Surgery | DX: I73.9 Peripheral vascular disease, unspecified (principal); I83.11 Varicose veins of right lower extremity with inflammation | CPT/HCPCS: 99202 ==

== ENCOUNTER 2022-07-10 10:48 | Outpatient (REF) | payer MEDICARE, MEDICAID, SELFPAY ==
--- NOTE | ~2022-07-10 | XR_ITS ---
EXAMINATION: XR CHEST CLINICAL INFORMATION: Pneumonia. COMPARISON: None TECHNIQUE: 2 views of the chest were obtained. FINDINGS: The lungs are hyperinflated but clear. Heart size and pulmonary vascularity is normal. There is right C7 and T1 anterior rib fusion. No additional bony abnormality seen. XR/XR chest 2V IMPRESSION: Hyperinflated lungs without any acute process.
--- NOTE | ~2022-07-10 | US_ITS ---
EXAMINATION: Noninvasive assessment of the bilateral lower extremities with ARTERIAL DUPLEX and ANKLE BRACHIAL INDICES (ABIs). CLINICAL INFORMATION: Peripheral vascular disease TECHNIQUE: Duplex Doppler techniques with waveform analysis and measurement of velocities in the bilateral common femoral, profunda femoris, superficial femoral, popliteal and tibial arteries were performed. Additionally, ankle pulse volume recordings, ankle pressure measurements and ankle brachial indices were obtained of the lower extremity arterial system bilaterally. The study was performed only at rest. COMPARISON: None FINDINGS: DIRECT DUPLEX DOPPLER FINDINGS: RIGHT LEG: Common femoral artery: 273 cm/s, phasicity: Triphasic Profunda femoris artery: 149 cm/s, phasicity: Triphasic Superficial femoral artery (proximal): 122 cm/s, phasicity: Biphasic Superficial femoral artery (mid): 124 cm/s, phasicity: Triphasic Superficial femoral artery (distal): 113 cm/s, phasicity: Triphasic Popliteal artery: 53 cm/s, phasicity: Triphasic Posterior tibial artery: 116 cm/s, phasicity: Triphasic Peroneal artery: 46.4 cm/s, phasicity: Biphasic LEFT LEG: Common femoral artery: 124 cm/s, phasicity: Triphasic Profunda femoris artery: 156 cm/s, phasicity: Triphasic Superficial femoral artery (proximal): 69.1 cm/s, phasicity: Monophasic Superficial femoral artery (mid): 75.0 cm/s, phasicity: Monophasic Superficial femoral artery (distal): 75.6 cm/s, phasicity: Monophasic Popliteal artery: 30.3 cm/s, phasicity: Monophasic Posterior tibial artery: 45.2 cm/s, phasicity: Monophasic Peroneal artery: 50.7 cm/s, phasicity: Monophasic ANKLE-BRACHIAL INDEX: Right: 0.85? Left: 0.73 ANKLE PRESSURES: Right: PT 135, DP 129 Left: PT?106, DP?115 ANKLE PVR WAVEFORMS: Right: Abnormal Left: Abnormal US/US arterial duplex LE BI IMPRESSION: Right leg: Mildly decreased ankle brachial index with patent arterial flow and arterial duplex throughout the visualized arterial vessels of the right lower extremity Left leg: Mildly decreased ankle brachial index with patent arterial flow with dampened waveforms within the left superficial femoral, popliteal and below-knee runoff vessels ZUHAIR Reference: - >1.4 = calcified vessels - 0.9 - 1.4 = normal - no significant arterial disease - 0.7 - 0.89 = mild peripheral arterial disease - 0.51 - 0.69 = moderate peripheral arterial disease - ? 0.50 = severe peripheral arterial disease - < .30 = critical arterial disease
== END 2022-07-10 10:49 | disposition home or self-care (01) ==
LOC: HO.US 10:48
PROVIDERS: PCP Internal Medicine; Visit Provider Surgery Vascular Surgery
DX: J18.9 Pneumonia, unspecified organism (principal); I70.213 Atherosclerosis of native arteries of extremities with intermittent claudication, bilateral legs
CPT/HCPCS: 71046; 93923; 93925

== ENCOUNTER 2022-07-26 12:31 | Outpatient (REF) | payer MEDICARE, MEDICAID, SELFPAY ==
--- NOTE | ~2022-07-26 | US_ITS ---
EXAMINATION: US LOWER EXTREMITY VENOUS (REFLUX EXAM), BILATERAL CLINICAL INDICATION: Chronic venous insufficiency with lower extremity varicose vein COMPARISON: None. TECHNIQUE: Color flow triplex imaging and compression Doppler was performed to evaluate both the deep and the superficial systems bilaterally. To evaluate the superficial system, the examination was performed in the upright position. Color-flow Doppler ultrasound and compression ultrasound were utilized. In addition, maneuvers were utilized to demonstrate reflux. FINDINGS: 1. DEEP VENOUS ULTRASOUND OF THE RIGHT LOWER EXTREMITY: Common Femoral Vein: Compressible, normal respiratory variation and augmented flow. Femoral Vein: Compressible, normal color flow and augmentation. Popliteal Vein: Compressible, normal augmentation. Deep Reflux: There is no evidence of reflux in the deep system in either the common femoral vein or the popliteal vein. There is no evidence of a Hart's cyst. 2. SUPERFICIAL ULTRASOUND WITH DOPPLER OF RIGHT LOWER EXTREMITY: GREAT SAPHENOUS VEIN: Saphenofemoral Junction: 0.6 cm; Reflux: 0 ms Proximal Thigh: 0.5 cm; Reflux: 0 ms Mid Thigh: 0.1 cm; Reflux: 0 ms Above Knee: 0.2 cm; Reflux: 0 ms At Knee: 0.2 cm; Reflux: 0 ms Below Knee: 0.2 cm; Reflux: 0 ms Mid Calf: 0.2 cm; Reflux: 0 ms Ankle: 0.2 cm; Reflux: 0 ms DUPLICATED MEDIAL GREAT SAPHENOUS VEIN: Diameter: None Imaged Reflux: NA DUPLICATED LATERAL GREAT SAPHENOUS VEIN: Diameter: 0.2 cm Reflux: None SMALL SAPHENOUS VEIN: Proximal: 0.2 cm; Reflux: 0 ms Distal: 0.2 cm; Reflux: 0 ms VEIN OF GIACOMINI: None Imaged. PERFORATORS: Location: None significant Size: NA Reflux: NA VARICOSITIES: Location: Proximal thigh Size: 0.3 cm Reflux: None 3. DEEP VENOUS ULTRASOUND OF THE LEFT LOWER EXTREMITY: Common Femoral Vein: Compressible, normal respiratory variation and augmented flow. Femoral Vein: Compressible, normal color flow and augmentation. Popliteal Vein: Compressible, normal augmentation. Deep Reflux: There is reflux in the popliteal vein measuring 2128 ms There is no evidence of a Hart's cyst. 4. SUPERFICIAL ULTRASOUND WITH DOPPLER OF LEFT LOWER EXTREMITY: GREAT SAPHENOUS VEIN: Saphenofemoral Junction: 0.5 cm; Reflux: 0 ms Proximal Thigh: 0.4 cm; Reflux: 2960 ms Mid Thigh: 0.3 cm; Reflux: 2508 ms Above Knee: 0.2 cm; Reflux: 2448 ms At Knee: 0.3 cm; Reflux: 2540 ms Below Knee: 0.3 cm; Reflux: 2472 ms Mid Calf: 0.3 cm; Reflux: 2472 ms Ankle: 0.3 cm; Reflux: 2740 ms DUPLICATED MEDIAL GREAT SAPHENOUS VEIN: Diameter: None Imaged Reflux: NA DUPLICATED LATERAL GREAT SAPHENOUS VEIN: Diameter: 0.2 cm Reflux: None SMALL SAPHENOUS VEIN: Proximal: 0.1 cm; Reflux: 0 ms Distal: 0.2 cm; Reflux: 0 ms VEIN OF GIACOMINI: None Imaged. PERFORATORS: Location: None significant Size: NA Reflux: NA VARICOSITIES: Location: Mid thigh and midcalf Size: 0.2 to 0.3 cm Reflux: Ranging from 788 ms to 2676 ms US/US venous duplex LE BI IMPRESSION: Right: No significant reflux within the right great saphenous vein and small saphenous vein Left: Severe reflux throughout the left great saphenous vein as described above. There is also deep venous reflux in the left popliteal vein. Varicose veins in the mid to thigh and mid calf as described above
== END 2022-07-26 12:32 | disposition home or self-care (01) ==
LOC: HO.US 12:31
PROVIDERS: Visit Provider Surgery Vascular Surgery
DX: I83.893 Varicose veins of bilateral lower extremities with other complications (principal)
CPT/HCPCS: 93970

== ENCOUNTER → 2022-09-12 11:00 | Outpatient (BNVA) | payer MEDICARE, MEDICAID, SELFPAY | PROVIDERS: PCP Internal Medicine; Visit Provider Surgery Vascular Surgery | DX: I73.9 Peripheral vascular disease, unspecified (principal); I83.11 Varicose veins of right lower extremity with inflammation; J44.9 Chronic obstructive pulmonary disease, unspecified; F17.210 Nicotine dependence, cigarettes, uncomplicated | CPT/HCPCS: 99212 ==

== ENCOUNTER 2022-12-08 13:23 | Outpatient (REF) | payer MEDICARE, MEDICAID, SELFPAY ==
[2022-12-08 15:12] LABS: Alanine Aminotransferase 22 U/L (0-40); Albumin Level 4.7 g/dL (3.5-5.0); Alkaline Phosphatase 101 U/L (39-117); Anion Gap 14 (12-20); Aspartate Amino Transferase 25 U/L (5-37); Bilirubin Total 0.9 mg/dL (0.0-1.0); Blood Urea Nitrogen 21 mg/dL (9-16); Calcium 10.1 mg/dL (8.4-10.2); Carbon Dioxide 26 mmol/L (22-29); Chloride 108 mmol/L (96-108); Cholesterol 186 mg/dL; Estimated Glomerular Filt Rate > 60; Glucose Fasting 110 mg/dL (60-99); HDL Cholesterol 53 mg/dL; LDL Cholesterol Calculated 116 mg/dl; Potassium 3.7 mmol/L (3.3-5.1); Sodium 144 mmol/L (135-145); Total Protein 8.1 g/dL (6.5-8.0); Triglycerides 85 mg/dL
== END 2022-12-08 13:24 | disposition home or self-care (01) ==
LOC: HO.LAB 13:23
PROVIDERS: PCP Internal Medicine; Visit Provider Internal Medicine
DX: I73.9 Peripheral vascular disease, unspecified (principal); E78.5 Hyperlipidemia, unspecified
CPT/HCPCS: 36415; 80053; 80061

== ENCOUNTER 2023-05-14 08:45 | Outpatient (AMB) | payer MEDICARE, MEDICAID, SELFPAY ==
--- NOTE | 2023-05-14 08:47 | MHC.PC.OV ---
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 Accompanied by: Self / Same As Patient Allergies ultrasound gel Adverse Reaction (Mild, Uncoded 05/14/23 08:48) Nausea Medication List - Last Reconciled 05/14/23 by Peace Monae MD albuterol sulfate 90 mcg/actuation (Ventolin HFA) 2 puffs inhalation Q6H PRN 30 days amlodipine 10 mg PO DAILY 90 days blood pressure test kit-large As directed escitalopram oxalate 10 mg PO DAILY fluticasone furoate-vilanterol 200-25 mcg/dose (Breo Ellipta) 1 inh inhalation DAILY 30 days ibuprofen 800 mg PO TID PRN lisinopril 40 mg PO DAILY 90 days simvastatin 20 mg PO BEDTIME 90 days trazodone 100 mg PO DAILY PRN Tobacco use date assessed: 10/02/22 Fall risk assessment: No Falls in past year Last assessed Fall Risk: 05/14/23 Dental Screening Dental Screen Date: 05/14/23 Did you have a dental visit in the last 12 months?: No Did you have a dental problem in the last 6 months where you did not have access to dental care?: No Was dental information given to patient?: Patient has dentist HPI HPI Comments History of Present Illness Details This is a 67-year-old male with COPD and mild major depression that comes for his physical exam. He has been out of his longstanding inhaler and use rescue inhaler more frequently. COPD is follow by pulmonology. I did refill Breo. Depression markedly improved and use trazodone as needed to sleep. Last colonoscopy was 2018 and was normal. Colonoscopy previous to 2018 was 2013 and show tubular adenoma. Will be referred to Gastroenterology for this matter. Denies any chest pain or shortness of breath. Blood pressure elevated because he is taking only 1 medication for blood pressure and he does have 2 medications. [facility] Medical History (Updated 05/14/23 @ 11:03 by Peace Monae MD) Smoker History of prostate cancer Tubular adenoma of colon Personal history of nicotine dependence COPD (chronic obstructive pulmonary disease) Insomnia due to psychological stress Mild depression NEENA (generalized anxiety disorder) Dyspnea on exertion Pure hypercholesterolemia Lumbar spondylosis Essential hypertension Surgical History History of colonoscopy (~2017) History of prostate biopsy (~2015) History of removal of cyst (~1990) History of prostate surgery (~2017) Family History Father Diabetes Pancreatic cancer Mother CVD (cardiovascular disease) Acute CVA (cerebrovascular accident) Family/Other FH: mental illness (Updated 05/14/23 @ 09:07 by Peace Monae MD) Household Members: Friend(s) Housing: Apartment Do you presently have visiting nurse or other home services: No Alcohol intake: current Alcohol intake frequency: a few times a month Alcohol type: beer Patient Tobacco Use Status: Current everyday Tobacco user Tobacco use type: Cigarette Cigarette Packs Per Day: 1 Years Smoked: 51 (onset 15, 1/2-1ppd, 40pyh) e-Cigarette/Vaping Use: Never Used Second Hand Smoke Exposure: No Substance Use Type: Marijuana Advance Directives Date on File: 03/22/20 service: No Current occupational status: disabled Cognitive needs: Yes Hearing needs: No Vision needs: No Questionnaire Thrive Questionnaire Date Thrive assessed: 10/02/22 NEENA-7 AMB Questionnaire NEENA-7 Date NEENA - 7 assessed: 10/02/22 Source: Developed by Drs. Baltazar Sanderson, Chari Loredo, Beni Ramos and colleagues, with an educational valeria from [employer]. Review of Systems Const All systems reviewed & are unremarkable except as noted in HPI and below Eyes Reports no additional complaints, Denies change in vision and Denies other visual disturbances Card Denies chest pain at rest, Denies chest pain with activity, Denies edema, Denies irregular heart rhythm, Denies claudication, Denies dyspnea, Denies dyspnea on exertion, Denies orthopnea, Denies paroxysmal nocturnal dyspnea and Denies slow heart rate Resp Denies cough, Denies dyspnea and Denies dyspnea on exertion GI Denies abdominal pain, Denies change in bowel habits, Denies excessive flatus, Denies nausea and Denies vomiting Denies urinary hesitancy, Denies urinary incontinence and Denies urinary urgency Musc Denies abnormal gait, Reports back pain, Denies atrophy, Denies deformity and Denies limited range of motion Skin/Breast Denies bleeding lesions, Denies changing lesions and Denies rash Neuro Denies abnormal gait and Denies lack of coordination Physical exam (Primary Care) Vital Signs: Last Vital Signs BP 172/100 H 05/14/23 08:51 BMI result Body Mass Index 26.2 Tobacco/Smoking Status: Tobacco use Status Tobacco use date assessed 10/02/22 05/14/23 08:50 Patient Tobacco Use Status Current everyday Tobacco 05/14/23 09:07 Tobacco use type Cigarette 05/14/23 09:07 e-Cigarette/Vaping Use Never Used 05/14/23 09:07 Thrive Assessment: Date of Thrive Assessment Date Thrive assessed 10/02/22 05/14/23 08:50 Const Orientation/consciousness: patient oriented x3 HENMT Head: Yes normal to inspection, Yes normocephalic and Yes atraumatic Ears: external ears normal Eyes General: appearance normal, both eyes and all related structures Eyelids: Yes eyelids normal Conjunctivae: conjunctivae normal Neck Neck: Yes normal visual inspection and Yes supple Resp Effort & Inspection: normal respiratory effort Auscultation: clear to auscultation bilaterally Cardio Jugular venous distension: no JVD Rate: regular rate Rhythm: regular rhythm Heart sounds: S1 normal heart sound present and S2 normal heart sound present GI Inspection: Yes normal to inspection Palpation (GI): Soft to palpation and nontender Auscultation: normal bowel sounds Skin General skin exam: no rashes or lesions noted Neuro General: patient oriented x3 and no focal motor deficits Extrem General: Yes full ROM Psych Appearance: grossly normal Office Procedures Flu Questionnaire Does the patient have a severe egg allergy?: No Immunizations flu vacc [id number] 6mos up(PF) 60 mcg(15 mcgx4)/0.5 mL IM syringe Performing Provider: Peace Monae MD [facility] Documented (not given) by: IFTIKHAR Ross on 05/14/23 09:00 Reason Not Given: Patient Refused Assessment and Plan Assessment & Plan (1) Physical exam: Code(s): Z00.00 - Encounter for general adult medical examination without abnormal findings Plan: Repeat in a year. (2) COPD (chronic obstructive pulmonary disease): Comment: DUE TO HIS LONG-TIME SMOKING HE DOES HAVE CHRONIC OBSTRUCTIVE PULMONARY DISEASE, MODERATELY SEVERE, CONFIRMED BY PULMONARY FUNCTION TEST. Has been started on Breo -200 1 inhalation daily, and it is helping. Also use ProAir 2 puffs Q 4-6 hours only p.r.n.. Code(s): J44.9 - Chronic obstructive pulmonary disease, unspecified Qualifiers: COPD type: emphysema Emphysema type: unspecified Qualified Code(s): J43.9 - Emphysema, unspecified Plan: Restart Breo. Use rescue inhaler as needed. Follow-up with pulmonology. (3) Mild depression: Code(s): F32.0 - Major depressive disorder, single episode, mild Plan: Continue trazodone as needed. Orders: Orders Comprehensive [place]. Panel Fast Today Z00.00 - Encounter for general adult medical examination without abnormal findings Lipid Panel Today E78.5 - Hyperlipidemia, unspecified, Z00.00 - Encounter for general adult medical examination without abnormal findings Influenza [id number] Immunization Today Z23 - Encounter for immunization Referrals Gastroenterology Referral D12.6 - Benign neoplasm of colon, unspecified Medications: Refilled amlodipine 10 mg PO DAILY 90 days 90 tabs 1RF Z00.00 - Encounter for general adult medical examination without abnormal findings lisinopril 40 mg PO DAILY 90 days 90 tabs 1RF I10 - Essential (primary) hypertension simvastatin 20 mg PO BEDTIME 90 days 90 tabs 1RF E78.00 - Pure hypercholesterolemia, unspecified fluticasone furoate-vilanterol 200-25 mcg/dose (Breo Ellipta) 1 inh inhalation DAILY 30 days 60 ea 6RF J44.9 - Chronic obstructive pulmonary disease, unspecified Discontinued escitalopram oxalate Discontinued Reason: Patient Completed Course 10 mg PO DAILY 30 tabs 6RF Coding Level of Care Code Est Pt Prev Care >65y(30070) Diagnoses Physical exam Z00.00 Pulmonary emphysema, unspecified emphysema type J43.9 COPD type: emphysema Emphysema type: unspecified Mild depression F32.0 Time Spent (min) 31
[2023-05-14 08:51] VITALS: BP 172/100; BMI 26.2
[2023-05-14 10:59] VITALS: BP 170/100
== END 2023-05-14 09:17 | disposition home or self-care (01) ==
PROVIDERS: Visit Provider Internal Medicine
DX: Z00.00 Encounter for general adult medical examination without abnormal findings (principal); J43.9 Emphysema, unspecified; F32.0 Major depressive disorder, single episode, mild
CPT/HCPCS: 99397

== ENCOUNTER 2023-05-31 10:21 | Outpatient (REF) | payer MEDICARE, MEDICAID, SELFPAY ==
--- NOTE | ~2023-05-31 | CT_ITS ---
EXAMINATION: CT CHEST SCREENING CLINICAL INFORMATION: Current smoker at 1 pack per day with 50 pack-years. COMPARISON: CT lung screening 03/04/2021. TECHNIQUE: Multidetector volumetric CT imaging of the chest was performed without contrast using low-dose technique. Additional 2D coronal and sagittal reformatted images and axial 3D maximum intensity projection (MIP) images were generated on the CT workstation. This CT examination was performed using dose optimization techniques as appropriate, variously including the following: *Automated exposure control *Adjustment of mA and/or kV according to patient size (this includes techniques or standardized protocols for targeted exams where dose is matched to indication/reason for exam; i.e. extremities or head) *Use of iterative reconstruction technique DLP: 58 mGy-cm FINDINGS: LUNGS: Again seen are emphysematous changes in the lungs. At least 10 new pulmonary nodules are present and thakkar images of all have been saved. None of these were seen at the time of the prior study, they range in size from 3 mm up to 7 mm (for example right upper lobe 5:143). A few of these are in a tree-in-bud type configuration, but most are not. MEDIASTINUM: Heart size is normal. The thyroid is unremarkable. No mediastinal or hilar lymphadenopathy is seen. CORONARY ARTERY CALCIFICATION: None visualized on this study. PLEURA: There is no pleural effusion. No pleural mass or thickening. AXILLA: No lymphadenopathy. UPPER ABDOMEN: Unremarkable. Adrenal glands are normal. OSSEOUS STRUCTURES: Unremarkable. CT/CT lung screening IMPRESSION: Multiple new pulmonary nodules are present. ASSESSMENT: Lung-RADS category 4A: Suspicious RECOMMENDATION: Short interval 3 month follow up low-dose CT chest. Immediate PET/CT could be performed if there is no suspicion that this could be inflammatory.
== END 2023-05-31 10:22 | disposition home or self-care (01) ==
LOC: HO.CT 10:21
PROVIDERS: PCP Internal Medicine; Visit Provider Physician Assistant Medical
DX: Z12.2 Encounter for screening for malignant neoplasm of respiratory organs (principal); F17.210 Nicotine dependence, cigarettes, uncomplicated
CPT/HCPCS: 71271

== ENCOUNTER 2023-11-20 09:38 | Outpatient (AMB) | payer MEDICARE, MEDICAID, SELFPAY ==
[2023-11-20 10:02] VITALS: BP 158/82; PULSE 85; O2SAT 95; BMI 25.4
--- NOTE | 2023-11-20 10:02 | A.OFFPC_ITS ---
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 Required: No Accompanied by: Self / Same As Patient Allergies ultrasound gel Adverse Reaction (Mild, Uncoded 11/20/23 10:16) Nausea Medication List - Last Reconciled 11/20/23 by Peace Monae MD albuterol sulfate 90 mcg/actuation (Ventolin HFA) 2 puffs inhalation Q6H PRN 30 days amlodipine 10 mg PO DAILY 90 days blood pressure test kit-large As directed fluticasone furoate-vilanterol 200-25 mcg/dose (Breo Ellipta) 1 inh inhalation DAILY 30 days ibuprofen 800 mg PO TID PRN lisinopril 40 mg PO DAILY 90 days simvastatin 20 mg PO BEDTIME 90 days trazodone 100 mg PO DAILY PRN Tobacco use date assessed: 11/20/23 Fall risk assessment: No Falls in past year Dental Screening Dental Screen Date: 11/20/23 Did you have a dental visit in the last 12 months?: No Did you have a dental problem in the last 6 months where you did not have access to dental care?: No Was dental information given to patient?: Patient declined HPI HPI Comments History of Present Illness Details This is a 67-year-old male with hypertension, pure hypercholesterolemia, mild depression, COPD, peripheral vascular disease and pulmonary nodules that comes today for follow-up on his conditions. Blood pressure elevated and he did took his medications. Blood pressure will be r echeck in 3 weeks by nurse navigator. Lipid panel will be ordered. Mild depression has been stable with trazodone and follow-up was requested. COPD also stable with long-acting inhaler and is follow by pulmonology but has not been seen in a while. Had a CT scan of the lung since 06/06/2023 showing multiple pulmonary nodules and this will be repeated. Peripheral vascular disease is follow by vascular surgery. Denies any chest pain or shortness on breath. Complains of a decrease in appetite and has lost a few lb already. He has a smoker and was advised to quit. [facility] Medical History (Updated 11/20/23 @ 12:24 by Peace Monae MD) COPD exacerbation Smoker History of prostate cancer Tubular adenoma of colon Personal history of nicotine dependence COPD (chronic obstructive pulmonary disease) Insomnia due to psychological stress Mild depression NEENA (generalized anxiety disorder) Dyspnea on exertion Pure hypercholesterolemia Lumbar spondylosis Essential hypertension Surgical History History of colonoscopy (~2017) History of prostate biopsy (~2015) History of removal of cyst (~1990) History of prostate surgery (~2016) Family History Father Diabetes Pancreatic cancer Mother CVD (cardiovascular disease) Acute CVA (cerebrovascular accident) Family/Other FH: mental illness Social History Household Members: Friend(s) Housing: Apartment Do you presently have visiting nurse or other home services: No Alcohol intake: current Alcohol intake frequency: a few times a month Alcohol type: beer Comment: Patient refused bed alarm Patient Tobacco Use Status: Current everyday Tobacco user Tobacco use type: Cigarette Cigarette Packs Per Day: 1 Cigarettes Per Day: 15 Years Smoked: 51 (onset 15, 1/2-1ppd, 40pyh) e-Cigarette/Vaping Use: Never Used Second Hand Smoke Exposure: No Substance Use Type: Marijuana Advance Directives Date on File: 03/22/20 service: No Current occupational status: disabled Cognitive needs: Yes Hearing needs: No Vision needs: No Questionnaire PHQ-9 Over the last 2 weeks, how often have you been bothered by any of the following problems? 1. Little interest or pleasure in doing things: more than half the days 2. Feeling down, depressed, or hopeless: more than half the days 3. Trouble falling or staying asleep, or sleeping too much: not at all 4. Feeling tired or having little energy: more than half the days 5. Poor appetite or overeating: nearly every day 6. Feeling bad about yourself - or that you are a failure or have let yourself or your family down: not at all 7. Trouble concentrating on things, such as reading the newspaper or watching television: more than half the days 8. Moving or speaking so slowly that other people could have noticed. Or the opposite - being so fidgety or restless that you have been moving around a lot more than usual: not at all 9. Thoughts that you would be better off or of hurting yourself in some way: not at all Total score: 11 Depression Screening Interpretation: Positive Depression Screening Follow-up: Existing condition, In treatment and Follow-up Visit Requested Depression Screening Done: Yes [id number] - PHQ-9 Billing: Yes Source: Developed by Drs. Baltazar Sanderson, Chari Loredo, Beni Ramos and colleagues, with an educational valeria from [employer]. Thrive Questionnaire Date Thrive assessed: 11/20/23 I am a: Patient What is your living situation today?: I have a steady place to live Within the past 12 months, did the food you bought not last and you didn't have the money to get more?: Never true Within the past 12 months, did you worry whether your food would run out before you got money to buy more?: Never true Do you have trouble paying for medicines?: No Do you have trouble getting transportation to medical appointments?: No Do you have trouble paying your heating and electricity bill?: No Do you have trouble taking care of your child, family member or friend?: No Do you have trouble with day-to-day activities such as bathing, preparing meals, shopping, managing finances, etc.?: No Are you currently unemployed and looking for a job?: No Are you interested in more education?: No Please select the resources that you would like help with: None Currently or been in a relationship where the following occur: no concerns reported THRIVE Score: 0 AUDIT C Alcohol Use Questionnaire (AUDIT-C) 1. How often do you have a drink containing alcohol?: Monthly or less 2. How many drinks containing alcohol do you have on a typical day when you are drinking?: 1 or 2 3. How often do you have six or more drinks on one occasion?: Never Total Score: 1 Score Reviewed/Action Taken: Yes NEENA-7 AMB Questionnaire NEENA-7 Date NEENA - 7 assessed: 11/20/23 Feeling nervous, anxious, or on edge: 3 = Nearly every day Not being able to stop or control worryin = Nearly every day Worrying too much about different things: 3 = Nearly every day Trouble relaxin = More than half the days Being so restless that it is hard to sit still: 2 = More than half the days Becoming easily annoyed or irritable: 3 = Nearly every day Feeling afraid as if something awful might happen: 2 = More than half the days Total NEENA-7 score (0-4 normal; 5-9 mild; 10-14 moderate; 15-21 severe): 18 Source: Developed by Drs. aBltazar Sanderson, Chari Loredo, Beni Ramos and colleagues, with an educational valeria from [employer]. NEENA-7 Assessment Billing NEENA-7 Assessment Tool: NEENA-7 Assessment 83506 Review of Systems Const All systems reviewed & are unremarkable except as noted in HPI and below Card Denies chest pain at rest, Denies chest pain with activity, Denies edema, Denies irregular heart rhythm, Denies claudication, Denies dyspnea, Denies dyspnea on exertion, Denies orthopnea, Denies paroxysmal nocturnal dyspnea and Denies slow heart rate Resp Denies cough, Denies dyspnea and Denies dyspnea on exertion Psych Reports abnormal sleep pattern, Reports anxiety and Reports depression Physical exam (Primary Care) Vital Signs: Last Vital Signs Pulse 85 11/20/23 10:02 BP 158/82 H 11/20/23 10:02 Pulse Ox 95 11/20/23 10:02 Oxygen Delivery Method Room Air 11/20/23 10:02 Care Plan Goal for BP management: Recheck blood pressure with nurse navigator in 3 weeks BMI result Body Mass Index 25.4 Tobacco/Smoking Status: Tobacco use Status Tobacco use date assessed 11/20/23 11/20/23 10:05 Patient Tobacco Use Status Current everyday Tobacco 11/20/23 10:05 Tobacco use type Cigarette 11/20/23 10:05 e-Cigarette/Vaping Use Never Used 11/20/23 10:05 Are you ready to quit: No Tobacco cessation counseling provided: Yes Relapse Prevention: discussed the importance of a supportive environment, discussed extending NRT, discussed negative mood or depression after quitting and weight gain after smoking is common Number of minutes spent counselin CPT code: Less than 3 minutes PHQ-9: PHQ-9 Score PHQ-9: Total score 11 11/20/23 10:19 Depression Screening Interpretation: Positive Depression Screening Follow-up: Existing condition, In treatment and Follow-up Visit Requested Thrive Assessment: Date of Thrive Assessment Date Thrive assessed 11/20/23 11/20/23 10:05 Currently or been in a relationship where the following occur: no concerns reported Resp Effort & Inspection: normal respiratory effort Auscultation: clear to auscultation bilaterally Cardio Jugular venous distension: no JVD Rate: regular rate Rhythm: regular rhythm Heart sounds: S1 normal heart sound present and S2 normal heart sound present Extrem General: Yes full ROM Assessment and Plan Assessment & Plan (1) Essential hypertension: Code(s): I10 - Essential (primary) hypertension Plan: Continue lisinopril and amlodipine. Recheck blood pressure with nurse navigator in 3 weeks. Blood pressure goal is equal or less than 130/80. (2) Pure hypercholesterolemia: Code(s): E78.00 - Pure hypercholesterolemia, unspecified Plan: Continue statins. Repeat lipid panel. (3) COPD (chronic obstructive pulmonary disease): Comment: DUE TO HIS LONG-TIME SMOKING HE DOES HAVE CHRONIC OBSTRUCTIVE PULMONARY DISEASE, MODERATELY SEVERE, CONFIRMED BY PULMONARY FUNCTION TEST. Has been started on Breo -200 1 inhalation daily, and it is helping. Also use ProAir 2 puffs Q 4-6 hours only p.r.n.. Code(s): J44.9 - Chronic obstructive pulmonary disease, unspecified Qualifiers: COPD type: emphysema Emphysema type: unspecified Qualified Code(s): J43.9 - Emphysema, unspecified Plan: Continue long-acting inhaler. Use rescue inhaler as needed. Follow-up with pulmonology. Advised to quit smoking. (4) Peripheral vascular disease of extremity: Code(s): I73.9 - Peripheral vascular disease, unspecified Plan: Follow-up with vascular surgery. (5) Mild depression: Code(s): F32.0 - Major depressive disorder, single episode, mild Plan: Continue trazodone. Follow-up requested. (6) Pulmonary nodule: Code(s): R91.1 - Solitary pulmonary nodule Plan: Repeat CT lungs. Orders: Orders CT lung screen follow up Today F17.200 - Nicotine dependence, unspecified, uncomplicated, R91.1 - Solitary pulmonary nodule Lipid Panel Today E78.5 - Hyperlipidemia, unspecified Comprehensive [place]. Panel Fast Today I10 - Essential (primary) hypertension Referrals Pulmonology Referral J43.9 - Emphysema, unspecified, R91.1 - Solitary pulmonary nodule Coding Level of Care Code Est Pt Level 4 (46851) Complex EM visit Add On G2211 Diagnoses Essential hypertension I10 Pure hypercholesterolemia E78.00 Pulmonary emphysema, unspecified emphysema type J43.9 COPD type: emphysema Emphysema type: unspecified Peripheral vascular disease of extremity I73.9 Mild depression F32.0 Pulmonary nodule R91.1 Additional Codes NEENA-7 Assessment Billing - NEENA-7 Assessment Tool: NEENA-7 Assessment 08169 ([id number]) Time Spent (min) 25
[2023-11-20 12:23] VITALS: BP 160/80
== END 2023-11-20 10:44 | disposition home or self-care (01) ==
PROVIDERS: PCP Internal Medicine; Visit Provider Internal Medicine
DX: I10 Essential (primary) hypertension (principal); J43.9 Emphysema, unspecified; I73.9 Peripheral vascular disease, unspecified; F32.0 Major depressive disorder, single episode, mild; E78.00 Pure hypercholesterolemia, unspecified; R91.1 Solitary pulmonary nodule
CPT/HCPCS: 99214; G2211

== ENCOUNTER 2024-07-14 12:20 | Outpatient (AMB) | payer MEDICARE, MEDICAID, SELFPAY ==
--- NOTE | 2024-07-14 12:35 | A.OFFPC_ITS ---
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: No Accompanied by: Self / Same As Patient Allergies ultrasound gel Adverse Reaction (Mild, Uncoded 07/14/24 12:48) Nausea Medication List - Last Reconciled 07/14/24 by Peace Monae MD albuterol sulfate 90 mcg/actuation (Ventolin HFA) 2 puffs inhalation Q6H PRN 30 days amlodipine 10 mg PO DAILY 90 days blood pressure test kit-large As directed fluticasone furoate-vilanterol 200-25 mcg/dose (Breo Ellipta) 1 inh inhalation DAILY 30 days ibuprofen 800 mg PO TID PRN lisinopril 40 mg PO DAILY 90 days simvastatin 20 mg PO BEDTIME 90 days trazodone 100 mg PO DAILY PRN Tobacco use date assessed: 07/14/24 Fall risk assessment: No Falls in past year Last assessed Fall Risk: 07/14/24 Dental Screening Dental Screen Date: 07/14/24 Did you have a dental visit in the last 12 months?: No Did you have a dental problem in the last 6 months where you did not have access to dental care?: No Was dental information given to patient?: Patient has dentist HPI HPI Comments History of Present Illness Details This is a 68-year-old male with COPD, mild major depression and peripheral arterial disease that comes today for his physical exam. He still needs rescue inhaler few times a month. Currently wheezing. Depression in remission and use trazodone as needed to sleep. Follows with vascular surgery for his peripheral arterial disease. Last colonoscopy was 2017 and was normal and was recommended to have it 2022 but I will refer him today. He declines pneumonia, flu and Tdap vaccine. Blood pressure elevated today and he did took his medications. Blood pressure will be recheck in 3 weeks by nurse navigator. [facility] Medical History (Updated 07/14/24 @ 13:03 by Peace Monae MD) Peripheral vascular disease of extremity COPD exacerbation Smoker History of prostate cancer Tubular adenoma of colon Personal history of nicotine dependence COPD (chronic obstructive pulmonary disease) Insomnia due to psychological stress Mild depression NEENA (generalized anxiety disorder) Dyspnea on exertion Pure hypercholesterolemia Lumbar spondylosis Essential hypertension Surgical History History of colonoscopy (~2017) History of prostate biopsy (~2015) History of removal of cyst (~1990) History of prostate surgery (~2017) Family History Father Diabetes Pancreatic cancer Mother CVD (cardiovascular disease) Acute CVA (cerebrovascular accident) Family/Other FH: mental illness Social History Household Members: Friend(s) Housing: Apartment Do you presently have visiting nurse or other home services: No Alcohol intake: current Alcohol intake frequency: a few times a month Alcohol type: beer Comment: Patient refused bed alarm Patient Tobacco Use Status: Current everyday Tobacco user Tobacco use type: Cigarette Cigarette Packs Per Day: 1 Cigarettes Per Day: 15 Years Smoked: 51 (onset 15, 1/2-1ppd, 40pyh) e-Cigarette/Vaping Use: Never Used Second Hand Smoke Exposure: No Substance Use Type: Marijuana Advance Directives Date on File: 03/22/20 service: No Current occupational status: disabled Cognitive needs: Yes Hearing needs: No Vision needs: No Questionnaire PHQ-9 Over the last 2 weeks, how often have you been bothered by any of the following problems? 1. Little interest or pleasure in doing things: not at all 2. Feeling down, depressed, or hopeless: not at all 3. Trouble falling or staying asleep, or sleeping too much: not at all 4. Feeling tired or having little energy: not at all 5. Poor appetite or overeating: not at all 6. Feeling bad about yourself - or that you are a failure or have let yourself or your family down: not at all 7. Trouble concentrating on things, such as reading the newspaper or watching television: not at all 8. Moving or speaking so slowly that other people could have noticed. Or the opposite - being so fidgety or restless that you have been moving around a lot more than usual: not at all 9. Thoughts that you would be better off or of hurting yourself in some way: not at all Total score: 0 Depression Screening Interpretation: Negative Depression Screening Done: Yes 40587 - PHQ-9 Billing: Yes Source: Developed by Drs. Baltazar Sanderson, Chari Loredo, Beni Ramos and colleagues, with an educational valeria from [employer]. Thrive Questionnaire Date Thrive assessed: 07/14/24 I am a: Patient What is your living situation today?: I have a steady place to live Within the past 12 months, did the food you bought not last and you didn't have the money to get more?: Never true Within the past 12 months, did you worry whether your food would run out before you got money to buy more?: Never true Do you have trouble paying for medicines?: I choose not to answer this question Do you have trouble getting transportation to medical appointments?: No Do you have trouble paying your heating and electricity bill?: I choose not to answer this question Do you have trouble taking care of your child, family member or friend?: No Do you have trouble with day-to-day activities such as bathing, preparing meals, shopping, managing finances, etc.?: No Are you currently unemployed and looking for a job?: No Are you interested in more education?: No Please select the resources that you would like help with: None Currently or been in a relationship where the following occur: I choose not to answer THRIVE Score: 0 AUDIT C Alcohol Use Questionnaire (AUDIT-C) 1. How often do you have a drink containing alcohol?: 2-4 times a month 2. How many drinks containing alcohol do you have on a typical day when you are drinking?: 1 or 2 3. How often do you have six or more drinks on one occasion?: Never Total Score: 2 Score Reviewed/Action Taken: No NEENA-7 AMB Questionnaire NEENA-7 Date NEENA - 7 assessed: 07/14/24 Feeling nervous, anxious, or on edge: 3 = Nearly every day Not being able to stop or control worryin = Nearly every day Worrying too much about different things: 3 = Nearly every day Trouble relaxin = Nearly every day Being so restless that it is hard to sit still: 0 = Not at all Becoming easily annoyed or irritable: 3 = Nearly every day Feeling afraid as if something awful might happen: 3 = Nearly every day Total NEENA-7 score (0-4 normal; 5-9 mild; 10-14 moderate; 15-21 severe): 18 Source: Developed by Drs. Baltazar Sanderson, Chari Loredo, Beni Ramos and colleagues, with an educational valeria from [employer]. NEENA-7 Assessment Billing NEENA-7 Assessment Tool: NEENA-7 Assessment 92897 Review of Systems Const All systems reviewed & are unremarkable except as noted in HPI and below Card Denies chest pain at rest, Denies chest pain with activity, Denies edema, Denies irregular heart rhythm, Denies claudication, Denies dyspnea, Denies dyspnea on exertion, Denies orthopnea, Denies paroxysmal nocturnal dyspnea and Denies slow heart rate Resp Denies cough, Denies dyspnea and Denies dyspnea on exertion GI Denies abdominal pain, Denies change in bowel habits, Denies excessive flatus, Denies nausea and Denies vomiting Neuro Denies behavioral changes and Denies lack of coordination Psych Denies behavioral changes Physical exam (Primary Care) Vital Signs: Last Vital Signs BP 182/92 H 07/14/24 12:36 BMI result Body Mass Index 25.4 Tobacco/Smoking Status: Tobacco use Status Tobacco use date assessed 07/14/24 07/14/24 12:42 Patient Tobacco Use Status Current everyday Tobacco 07/14/24 12:42 Tobacco use type Cigarette 07/14/24 12:42 e-Cigarette/Vaping Use Never Used 07/14/24 12:42 Are you ready to quit: Yes Tobacco cessation counseling provided: Yes Items discussed: Nicotine replacement and QuitWorks Relapse Prevention: discussed the importance of a supportive environment, discussed extending NRT, discussed negative mood or depression after quitting, weight gain after smoking is common and discussed dietary, exercise and/or lifestyle changes Number of minutes spent counselin CPT code: 57947 - 4-10 Minutes PHQ-9: PHQ-9 Score PHQ-9: Total score 0 07/14/24 13:04 Depression Screening Interpretation: Negative Thrive Assessment: Date of Thrive Assessment Date Thrive assessed 07/14/24 07/14/24 12:42 Currently or been in a relationship where the following occur: I choose not to answer Const Limitations: ambulation with cane HENMT Head: Yes normal to inspection, Yes normocephalic and Yes atraumatic Ears: external ears normal Eyes General: appearance normal, both eyes and all related structures Eyelids: Yes eyelids normal Conjunctivae: conjunctivae normal Neck Neck: Yes normal visual inspection and Yes supple Resp Effort & Inspection: normal respiratory effort Auscultation: wheezes expiratory wheezes Cardio Jugular venous distension: no JVD Rate: regular rate Rhythm: regular rhythm Heart sounds: S1 normal heart sound present and S2 normal heart sound present GI Inspection: Yes normal to inspection Palpation (GI): Soft to palpation and nontender Auscultation: normal bowel sounds Skin General skin exam: no rashes or lesions noted Neuro General: no focal motor deficits Extrem General: Yes full ROM Psych Appearance: grossly normal Office Procedures Flu Questionnaire Does the patient have a severe egg allergy?: No Immunizations Fluarix Triv [id number] (PF) 45 mcg (15 mcg x 3)/0.5 mL IM syringe Performing Provider: Peace Monae MD Performing Location: [facility] [place] [place] [facility] Documented (not given) by: IFTIKHAR Ross on 07/14/24 12:43 Reason Not Given: Patient Refused Coding Level of Care Code Est Pt Prev Care >65y(76265) Diagnoses Physical exam Z00.00 PAD (peripheral artery disease) I73.9 Pulmonary emphysema, unspecified emphysema type J43.9 COPD type: emphysema Emphysema type: unspecified Mild depression F32.0 Additional Codes NEENA-7 Assessment Billing - NEENA-7 Assessment Tool: NEENA-7 Assessment 44529 ([id number]) PHQ-9 - 61413 - PHQ-9 Billing: Yes ([id number]) Vital Signs *Quality* - CPT code: 01754 - 4-10 Minutes ([id number]) Time Spent (min) 34 Assessment & Plan Assessment & Plan (1) Physical exam: Code(s): Z00.00 - Encounter for general adult medical examination without abnormal findings Category: Medical (2) PAD (peripheral artery disease): Code(s): I73.9 - Peripheral vascular disease, unspecified Category: Medical (3) COPD (chronic obstructive pulmonary disease): Comment: DUE TO HIS LONG-TIME SMOKING HE DOES HAVE CHRONIC OBSTRUCTIVE PULMONARY DISEASE, MODERATELY SEVERE, CONFIRMED BY PULMONARY FUNCTION TEST. Has been started on Breo -200 1 inhalation daily, and it is helping. Also use ProAir 2 puffs Q 4-6 hours only p.r.n.. Code(s): J44.9 - Chronic obstructive pulmonary disease, unspecified Category: Medical Qualifiers: COPD type: emphysema Emphysema type: unspecified Qualified Code(s): J43.9 - Emphysema, unspecified (4) Mild depression: Code(s): F32.0 - Major depressive disorder, single episode, mild Category: Medical Plan Repeat physical exam next year. For his peripheral arterial disease follow-up with vascular surgeon as needed. For his COPD continue long-acting inhaler. Follow-up with pulmonology. Advised to quit smoking. Mild major depression is in remission at the moment. Continue trazodone as needed to sleep. Orders: Orders Influenza [id number] Immunization Today Z23 - Encounter for immunization Lipid Panel Today E78.5 - Hyperlipidemia, unspecified Comprehensive [place]. Panel Fast Today Z00.00 - Encounter for general adult medical examination without abnormal findings Referrals Gastroenterology Referral D12.6 - Benign neoplasm of colon, unspecified Medications: Refilled albuterol sulfate 90 mcg/actuation (Ventolin HFA) 2 puffs inhalation Q6H PRN 6.7 grams 2RF shortness of breath or wheezing 30 days fluticasone furoate-vilanterol 200-25 mcg/dose (Breo Ellipta) 1 inh inhalation DAILY 60 ea 6RF 30 days J44.9 - Chronic obstructive pulmonary disease, unspecified
[2024-07-14 12:36] VITALS: BP 182/92; BMI 25.4
== END 2024-07-14 13:13 | disposition home or self-care (01) ==
PROVIDERS: PCP Internal Medicine; Visit Provider Internal Medicine
DX: Z00.00 Encounter for general adult medical examination without abnormal findings (principal); I73.9 Peripheral vascular disease, unspecified; J43.9 Emphysema, unspecified; F32.0 Major depressive disorder, single episode, mild; Z23 Encounter for immunization

== ENCOUNTER → 2024-07-14 12:20 | Outpatient (BNVA) | payer MEDICARE, MEDICAID, SELFPAY | PROVIDERS: PCP Internal Medicine; Visit Provider Internal Medicine | DX: Z00.00 Encounter for general adult medical examination without abnormal findings (principal); I73.9 Peripheral vascular disease, unspecified; J43.9 Emphysema, unspecified; F32.0 Major depressive disorder, single episode, mild | CPT/HCPCS: 90471; 96127; 99397 ==

== ENCOUNTER → 2024-08-08 13:38 | Outpatient (BNVA) | payer MEDICARE, MEDICAID, SELFPAY | PROVIDERS: PCP Internal Medicine ==